=== PATIENT | male | born 1960 | race Caucasian/White ===

== ENCOUNTER 2017-03-01 06:01 | Inpatient (IN) ==
--- NOTE | 2017-03-01 06:07 | Emergency Department Note ---
Arrival - Arrival Stated Complaint: abscess Mode of Arrival: Stretcher Limitations: No Limitations Source: Patient, EMS Time Seen by Provider: 03/01/17 06:05 - History of Present Illness HPI Narrative: Patient is a 56-year-old white male sent from [facility] for evaluation of peritonsillar abscess. Patient's had a sore throat for 5 days. Patient has swelling on the left side of his throat. Onset (ago): day(s) (5) Consistency: constant Severity: moderate Allergies/Adverse Reactions: Allergies Allergy/AdvReac Type Severity Reaction Status Date / Time morphine AdvReac Mild Agitated Verified 03/01/17 06:40 Review of System - Review of System 12 point system: reviewed and no additional remarkable complaints except as stated Medical,Surgical,& Family Hx - Medical History Medical History: noncontributory - Social History Smoking Status: Current every day smoker Functional capacity: independent ambulation Exam Vital Signs: Vital Signs Temperature 98.4 F 03/01/17 07:29 Pulse Rate 85 03/01/17 07:29 Respiratory Rate 20 03/01/17 07:29 Blood Pressure 144/94 03/01/17 07:29 O2 Sat by Pulse Oximetry 93 L 03/01/17 07:29 GENERAL: This is a well-nourished well-developed white male in no apparent distress. VITAL SIGNS: Reviewed HEENT: Head is atraumatic and normocephalic. Pupils are equal round react to light. Extraocular movements are intact. Oropharynx is erythematous with mass in the left peritonsillar fossa and deviation of the uvula to the right. NECK: Neck is soft and supple without tenderness. There are no masses. There is no lymphadenopathy. LUNGS: Lungs are clear to auscultation. Chest rises symmetrically. There is no chest wall tenderness. CV: Heart is regular rate and rhythm without murmurs rubs or gallops. ABDOMEN: Abdomen is soft, nontender to palpation. There are no abdominal abnormal masses palpated. There is no organomegaly. Bowel sounds are present and active. SKIN: Skin is warm and dry. No rash. EXTREMITIES: Patient has full range of motion without tenderness. There is no pedal edema. NEUROLOGIC: Awake alert and oriented 4. Cranial nerves II through XII are grossly intact. Motor is 5 over 5 in all extremities bilaterally. Course - Consultations Consultation #1: Discussed with Dr. Orta. Patient will be admitted to his service. Initial orders written for him. He will assume care of the patient upon patient's arrival to the [facility]. Time: 06:08 Disposition Clinical Impression: Left peritonsillar abscess Case discussed with: patient Disposition: Still a Patient Condition: Stable Time of Disposition: 06:07
[2017-03-01] MEDS ORDERED: ONDANSETRON 4 MG/2 ML VIAL IV PRN (07:29)
[2017-03-01] MEDS ORDERED: ACETAMINOPHEN 325 MG TABLET PO PRN (07:29)
[2017-03-01] MEDS ORDERED: DEXAMETHASONE 10 MG/1 ML VIAL IV ONE (08:00)
[2017-03-01 08:30] LABS: Basophils % 0.3 % (0.0-0.8); Hematocrit 44.8 VOL% (42.0-52.0); Hemoglobin 15.3 GM/DL (14.0-18.0); Immature Granulocytes % 0.8 %; Lymphocytes # 0.6 10*3/uL (1.4-4.0); Lymphocytes % 5.1 % (21.2-54.2); Mean Corpuscular HGB Conc 34.2 GM/DL (32-36); Mean Corpuscular Hemoglobin 32 PG (27-34); Mean Corpuscular Volume 92.9 FL (87-102); Mean Platelet Volume 10.3 FL (9.6-12.0); Monocytes # 0.2 10*3/uL (0.11-0.8); Monocytes % 1.8 % (1.7-12.7); Neutrophils # 10.9 10*3/uL (1.4-7.4); Platelet Count 260 T/CUMM (130-400); Red Blood Count 4.82 MC/CUMM (3.8-5.5); Red Cell Distribution Width 13.5 % (9.3-17.3); White Blood Count 11.9 T/CUMM (4-12)
[2017-03-01 08:48] LABS: Band Neutrophils 5 % (0-10); Lymphocytes 6 % (20-55); Platelet Estimate Adequate; Segmented Neutrophils 89 % (50-85); Total Cells Counted 100
[2017-03-01 08:49] LABS: Hypochromasia 1+
[2017-03-01] MEDS ORDERED: PANTOPRAZOLE 40 MG TABLET PO SCH (09:00)
[2017-03-01 09:01] LABS: Albumin 2.9 G/DL (3.4-5.0); Calcium 8.8 MG/DL (8.5-10.1); Potassium 4.1 MMOL/L (3.5-5.1); Total Protein 7.4 G/DL (6.4-8.3)
[2017-03-01] MEDS ORDERED: cefTRIAXone 1,000 MG in SODIUM CHLORIDE 0.9% 100 ML IV SCH (10:00)
--- NOTE | 2017-03-01 10:49 | History & Physical Report ---
Assessment and Plan - Time spent with patient Time spent with patient: Less than 30 minutes (1) Peritonsillar abscess Status: Acute Assessment and plan: I recommend OR incision and drainage with debridement and possible biopsy of left peritonsillar abscess and surrounding area. Risks and benefits were discussed and patient desires to proceed with surgery that will be performed later today. Current Visit: Yes (2) Dysphasia Status: Acute Current Visit: Yes (3) Odynophagia Status: Acute Current Visit: Yes History of Present Illness Chief complaint: Left peritonsillar abscess History of present illness: Mr. Nick is a 56 year old male with a 1+ week history of a sore throat that is dull pain consistently with intermittent sharp pains he is noted increasing dysphagia and odynophagia. He notes minimal to no improvement with over-the- counter medication and his story is changed is rather not he has been on antibiotics for this or not. The ER evaluated and performed a CT and found to have a left peritonsillar abscess ENT was asked to admit and drained peritonsillar abscess. Home Medications Medication Instructions Recorded Confirmed Type No Known Home Medications [No 03/01/17 03/01/17 History Known Home Medications] Allergies Allergy/AdvReac Type Severity Reaction Status Date / Time morphine AdvReac Mild Agitated Verified 03/01/17 06:40 12 point system: reviewed and no additional remarkable complaints except as stated Medical,Surgical,& Family Hx - Medical History Cardio: History of: CAD, Hypertension, LA, Cardiovascular Problems Psychological: History of: Anxiety Disorders, Depression Gastrointestinal: History of: GI Problems (left groin hernia) Musculoskeletal: No history of: Amputation - Surgical History Cardiac Surgeries: Sugical HX of: Cardiac Catheterization, Cardiac Surgery Thoracic Surgeries: Patient denies;: Organ Transplant Neurologic Surgeries: Patient denies: Neurologic Surgery HEENT Surgeries: Patient denies: Tonsilectomy & Adenoidectomy Abdominal Surgeries: Surgical HX of: Hernia Repair (2 years old) Patient denies: Abdominal Surgery Reproductive Surgeries: Patient denies;: Genitourinary Surgery - Social History Smoking Status: Current every day smoker Frequency of Alcohol Use: None Type of Drug Use: None Exam - Constitutional Vitals: Period Temp Pulse Resp BP Sys/Jackson Pulse Ox Last 24 Hr 98.1 F-98.4 F 85-90 18-20 144-151/94-100 93-98 General appearance: normal weight, no acute distress - Head Head exam: Present: normal inspection, normocephalic - Eye Eye exam: Present: EOMI Pupils: Present: DANYA - ENT ENT exam: Present: other (Left soft palate and peritonsillar fullness with right midline shift of the uvula.) - Expanded ENT Exam TM exam: cerumen impaction: Bilateral TM Mouth exam: Present: dry mucosa Teeth exam: Present: dental caries, other (Very poor dental hygiene) Throat exam: Present: L peritonsillar mass, post pharyngeal edema, post pharyngeal erythema, tonsillar exudate - Neck Neck exam: Present: normal inspection - Respiratory Respiratory exam: Present: other (No shortness of breath or difficulty breathing ) - Cardiovascular Cardiovascular exam: Present: regular rate and rhythm - GI/Abdominal GI/Abdominal exam: Present: soft (No gross organomegaly) - Extremities Exam Extremities exam: Present: normal inspection, normal capillary refill - Neurological Exam Neurological exam: Present: alert, oriented X3, CN II-XII intact - Psychiatric Psychiatric exam: Present: normal affect, normal mood - Skin Skin exam: Present: normal color, warm Results - Labs CBC & BMP: 03/01/17 08:03 03/01/17 08:03
[2017-03-01] MEDS: LACTATED RINGERS 1,000 ML IV SCH ×2 (11:06→16:38)
[2017-03-01 12:30] LABS: Bilirubin,Total 2.4 MG/DL (0.2-1.0)
--- NOTE | 2017-03-01 12:42 | EKG Report ---
Stationary ECG Study [facility] Test Date: 03/01/2017 12:43:48 PM Pat Name: REE BRYAN Department: Room: 327 Gender: M Hr Systems Analyst: DANAY : 1960 Requested by: Fredis Mancilla Order Number: [id number] Reading MD: KIM PRETTY Intervals [place] Rate: 80 P: 81 LA: 146 QRS: -49 QRSD: 124 T: 88 QT: 414 QTc: 450 Interpretive Statements SINUS RHYTHM INFERIOR MYOCARDIAL INFARCTION, PROBABLY OLD WITH POSTERIOR EXTENSION ANTEROLATERAL MYOCARDIAL INFARCTION, OF INDETERMINATE AGE Electronically Signed On 03-03-17 15:24:42 CDT by KIM PRETTY [email or web address]
[2017-03-01] MEDS ORDERED: CLINDAMYCIN INJ 900 MG in PREMIX 1 EACH IV SCH (14:00)
[2017-03-01] MEDS ORDERED: ETOMIDATE 20 MG/10 ML VIAL IV ONE (14:23)
[2017-03-01] MEDS ORDERED: ONDANSETRON 4 MG/2 ML VIAL ONE (14:23)
[2017-03-01] MEDS ORDERED: LIDOCAINE 2% 5 ML VIAL ONE (14:23)
[2017-03-01] MEDS ORDERED: PROPOFOL 200 MG/20 ML VIAL IV ONE (14:23)
[2017-03-01] MEDS ORDERED: ROCURONIUM 100 MG/10 ML VIAL IV ONE (14:23)
[2017-03-01] MEDS ORDERED: SUCCINYLCHOLINE 200 MG/10 ML VIAL ONE (14:23)
[2017-03-01] MEDS ORDERED: DEXAMETHASONE 10 MG/1 ML VIAL ONE (14:23)
[2017-03-01] MEDS ORDERED: fentaNYL 100 MCG/2 ML VIAL ONE (15:01)
[2017-03-01] MEDS ORDERED: SEVOFLURANE 1 UNIT/15 MINUTE INH ONE (15:01)
[2017-03-01] MEDS ORDERED: MIDAZOLAM 2 MG/2 ML VIAL ONE (15:02)
--- NOTE | 2017-03-01 15:14 | Anesthesia Post-Op ---
Anesthesia Post OP - Post Ansesthetic Evaluation Patient seen in post op: Yes Resp: within normal limits CV: within normal limits Mental: within normal limits Temp: within normal limits [id number]: within normal limits Nausea and Vomiting: within normal limits Pain: within normal limits
--- NOTE | 2017-03-01 15:55 | Discharge Summary ---
Hospital Course - Hospital Course Hospital Course: The patient was evaluated in the emergency room this morning and found to have a left peritonsillar abscess when she was observed throughout the day and taken back to the OR for incision and drainage in which he tolerated this well he will be discharged home on antibiotics and follow-up with me in the clinic. - Time spent with patient Time with patient DS: Less than 30 minutes Diagnosis - Discharge Diagnosis (1) Peritonsillar abscess Status: Acute (2) Dysphasia Status: Acute (3) Odynophagia Status: Acute Specialty Discharge - Follow Up or Referrals Follow up with: Royer Orta DO [Physician] - 1 Week Discharge Plan - Discharge Data Disposition: Disch To Home/Self Care Condition at Discharge: Stable Discharge Diet: advance to your usual diet Activity: resume usual activities as tolerated Hygiene: no restrictions Weight Bearing at Discharge: full weight bearing Driving: no restrictions - Discharge Medications New Clindamycin Inj [Cleocin Inj] 900 mg IV Q8HR HYDROcodone/ACETAMIN 7.5-325 [Bastian 7.5-325] 1 tablet PO Q4H PRN tablet PRN Reason: Pain Moderate (4-7) - Follow Up or Referral - Forms/Instructions Exam - Constitutional Vitals: Period Temp Pulse Resp BP Sys/Jackson Pulse Ox Last 24 Hr 97.3 F-98.4 F 74-97 18-20 125-167/76-118 92-100 General appearance: normal weight, no acute distress - Head Head exam: Present: normal inspection, normocephalic - Eye Eye exam: Present: EOMI Pupils: Present: DANYA - ENT ENT exam: Present: normal exam, normal external ear exam, other (Left peritonsillar swelling and edema consistent with peritonsillar abscess that has been incised and drained in the OR) - Expanded ENT Exam TM exam: cerumen impaction: Bilateral TM Teeth exam: Present: dental caries (Throughout extremely poor teeth and mucosal and gingival erythema) Throat exam: Present: L peritonsillar mass (Incised and drained in the OR), post pharyngeal edema, post pharyngeal erythema - Neck Neck exam: Present: normal inspection - Respiratory Respiratory exam: Present: clear to auscultation bilaterally - Cardiovascular Cardiovascular exam: Present: regular rate and rhythm - GI/Abdominal GI/Abdominal exam: Present: normal bowel sounds, soft - Extremities Exam Extremities exam: Present: normal inspection - Neurological Exam Neurological exam: Present: alert, oriented X3, CN II-XII intact - Psychiatric Psychiatric exam: Present: normal affect, normal mood - Skin Skin exam: Present: normal color, warm Discharge Results Labs on day of discharge: Labs from last 24 hours 03/01/17 03/01/17 08:03 08:03 WBC 11.9 RBC 4.82 Hgb 15.3 Hct 44.8 MCV 92.9 MCH 32 MCHC 34.2 RDW 13.5 Plt Count 260 MPV 10.3 Neut % (Auto) 92.0 H Lymph % (Auto) 5.1 L Ulster % (Auto) 1.8 Eos % (Auto) 0.0 Baso % (Auto) 0.3 Neut # (Auto) 10.9 H Lymph # (Auto) 0.6 L Ulster # (Auto) 0.2 Eos # (Auto) 0.0 Baso # (Auto) 0.0 Total Counted 100 Immature Gran % 0.8 Nucleated RBC % 0.0 Immature Gran # 0.10 Segmented Neutrophils 89 H Band Neutrophils 5 Lymphocytes 6 L Nucleated RBCs # 0.00 Platelet Estimate Adequate Hypochromasia 1+ Morphology Comment Sodium 136 Potassium 4.1 Chloride 101 Carbon Dioxide 26 Anion Gap 13.1 BUN 19 H Creatinine 1.00 GFR Calculation 96 BUN/Creatinine Ratio 19.00 Glucose 222 H Calculated Osmolality 280.0 Calcium 8.8 Total Bilirubin 2.40 H AST 21 ALT 46 Alkaline Phosphatase 102 Total Protein 7.4 Albumin 2.9 L Globulin 4.5 H Albumin/Globulin Ratio 0.6 L DS: Provider Date of admission: 03/01/17 06:11 Primary care physician: . No PCP Attending physician on admission: Royer Orta DO Discharging clinician: Royer Orta DO Expected date of discharge: 03/01/17
[2017-03-01 17:24] VITALS: BP 128/83
== END 2017-03-01 17:05 | disposition home or self-care (01) | DRG 134 ==
LOC: EDBD → EDUNIT# → N.ED 06:01 → N.EDINP 06:11 → N.3E 06:43
PROVIDERS: ADMIT Otolaryngology; ATTEND Otolaryngology

== ENCOUNTER 2017-05-25 19:51 | Inpatient (IN) ==
[2017-05-25] MEDS ORDERED: MIDAZOLAM 2 MG/2 ML VIAL ONE (20:01)
[2017-05-25] MEDS ORDERED: HYDROmorphone 2 MG/1 ML VIAL ONE (20:01)
[2017-05-25] MEDS ORDERED: HEPARIN/NACL 0.9% 2 UNITS/ML 1,000 ML IV ONE (20:09)
[2017-05-25] MEDS ORDERED: LIDOCAINE 1% 20 ML VIAL ONE (20:09)
[2017-05-25] MEDS ORDERED: NITROGLYCERIN DRIP 50 MG/250 ML BOTTLE IV ONE (20:54)
[2017-05-25] MEDS ORDERED: LABETALOL 20 MG/4 ML SYRINGE IV ONE (21:02)
[2017-05-25] MEDS: NITROGLYCERIN DRIP 50 MG/250 ML BOTTLE IV SCH (22:00)
--- NOTE | 2017-05-25 22:05 | Cardiac Catheterization ---
Date of Procedure:: 05/25/17 Pre-op Diagnosis: Anterolateral infarction chest pain Post-op diagnosis: same Procedure: Cardia catheterization procedure note #1 left heart catheterization #2 selective coronary angiography #3 vein graft angiography #4 CARROLL angiography #5 ALESHIA angiography #6 left ventriculography #7 aortogram #8 successful OM 1 stent Omnipaque was used for procedure Description of procedure 3 [place] techs and a physician were waiting in the [place] [place] for the patient to arrive from [facility]. The patient was quickly prepped and draped in sterile fashion and local anesthesia was achieved by infiltration 1% Xylocaine. Using a Cook needle the right femoral artery was cannulated and a #6 sheath was inserted. A 6 Uruguayan left Glenis catheter was introduced in the left main was cannulated. Coronary angiography was performed in several MACKAY and SWEDISH projections. The catheter change for a 6 Uruguayan KADY catheter and CARROLL angiography was performed in MACKAY SWEDISH projections. The catheter change for a 6 Uruguayan left coronary bypass graft catheter and vein graft angiography was performed in MACKAY and SWEDISH projections. The catheter change for a 6 [place]ruguayan right Amplatz catheter and right coronary angiography was performed in the SWEDISH projection only. The catheter change for a pigtail catheter and an aortogram was then performed in the SWEDISH projection only using 36 cc of contrast. The catheter was advanced retrograde in the left ventricle and the end-diastolic pressure was recorded. Left ventriculography was performed in the MACKAY projection using 24 cc of contrast. A pullback was made across phytic valve. The catheter change for a 6 Uruguayan left Glenis guiding catheter left main was recannulated. A pro-water flex wire was introduced and advanced into the distal circumflex. Direct stenting was performed with a 3.0 x 20 Ott rebel bare-metal stent. It was postdilated to 15 isabel creating a 3.3 mm lumen. The balloon was then removed and exchanged for a 3.25 mm Quantum noncompliant balloon and the stent was postdilated to 18 isabel for 25 seconds, creating a 3.38 mm lumen. The balloon was then deflated and brought to the guiding catheter. Repeat angiography widely patent vessel with mild residual narrowing no dissection and brisk runoff. The guiding catheter was then removed and the KADY catheter was introduced over guidewire and ALESHIA angiography was performed in the shallow SWEDISH projection. The catheter and sheath were then removed and the femoral arteriotomy site was sealed percutaneously minx closure device with prompt cessation of bleeding and prompt return of femoral and foot pulses. The patient was transported to CCU in guarded condition. Hemodynamic data Aortic pressure 147/100 mean 120 Left ventricle 147/20 Selective coronary angiography Left main trunk is patent bifurcates. The LAD is totally occluded at the previous stent sites just at the first septal lost charge card clerk. The diagonal branch is occluded. There is a 80% narrowing in the proximal OM 1 branch. There is a 60% narrowing the main trunk of the circumflex. The dominant coronary artery is occluded in the proximal segment with bridging collaterals. Several septal perforators provide good cocw-uj-echca collaterals to distal right coronary branches. The saphenous vein graft to the diagonal is widely patent. The left internal mammary arteries a 2.5 motor non-tortuous patent vessel. There is no anastomosis to the LAD. The right internal mammary artery is a 3 mm non- tortuous patent vessel. Left ventriculography The end-systolic and end-diastolic volumes are increased. There is anteroapical akinesis and inferobasal akinesis. Ejection fraction 20% . There is mild 1+ mitral regurgitation under the conditions of the study. Aortogram The proximal aortic root is mildly dilated. No aortic insufficiency. No other grafts visualized. Conclusions #1 increased LVEDP 20 #2 ejection fraction 20% with inferobasal akinesis and anteroapical akinesis #3 mild 1+ mitral regurgitation #4 no aortic valve gradient #5 aortogram no AI, only one graft visualized #6 left main trunk-patent #7 LAD-occluded proximally at the previous stent sites just after the first septal lost charge card clerk #8 diagonal-occluded #9 circumflex-80% ostial OM1 and 6% main trunk circumflex stenosis #10 dominant RCA-100% proximal occlusion with bridging collaterals and good left -to-right collaterals from several septal perforators fill the distal right branches in a retrograde manner #11 CARROLL-patent 2.5 mm vessel. No anastomosis to LAD #12 ALESHIA-3.0 mm vessel #13 successful OM1 stent using a 3.0 x 20 moderate rebel bare-metal stent, postdilated with a 3.25 Quantum noncompliant balloon to 3.38 mm lumen. Good result obtained. Disposition This patient has a long complicated cardiac history. He is status post anterior infarct with LAD stent September 2009 at [facility] with apical akinesis. He is status post LAD re-stent December 2009 in [place] He had his third LAD stent procedure in April 2010 in [place]. This was due to noncompliance with Plavix. He is status post two-vessel CABG September 27, 2010 with a CARROLL graft to the LAD and vein graft to diagonal by Dr. Tate. The patient has not been seen since 2010. He has been off work for the past 3 years and has taken no medications. Today he presented with recurrent chest pain and was sent in a delayed manner from [facility] to the [place] [facility]. My entire team was waiting when he arrived. The EKG showed deep Q waves in the inferior and lateral leads. Since I last saw him in 2010 he has had a inferior infarction and occlusion of the right coronary with good nypd-ju-mleqs collaterals. The LAD stent sites are occluded as expected and are chronic. The new finding was severe disease in the OM1 branch which was stented with a 3.0 x 20 mm Rebel bare-metal stent, postdilated to a 3.38 mm lumen. The vein graft to diagonal is widely patent. The left internal mammary artery does not anastomose to the LAD. 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 Ejection fraction 20%. He will be managed medically. Implants: Successful OM1 stent 3.0 x 20 minute rebel bare-metal stent postdilated 3.3 mm lumen with a noncompliant balloon. Good result obtained. Anesthesia: moderate conscious sedation Surgeon / Physician: Shamir Mckinnon Estimated blood loss: minimal Condition: stable Disposition: ICU/CCU - Medications / Follow-up
[2017-05-25] MEDS ORDERED: ZALEPLON 5 MG CAPSULE PO PRN (22:06)
[2017-05-25] MEDS ORDERED: ONDANSETRON 4 MG/2 ML VIAL IV PRN (22:06)
[2017-05-25] MEDS ORDERED: ACETAMINOPHEN 325 MG TABLET PO PRN (22:06)
--- NOTE | 2017-05-25 22:21 | Cardiology History & Physical ---
History of Present Illness History of present illness: Cardiology history and physical 56-year-old man transferred directly, she will be ER with chest pain and anterolateral infarction. EKG showed deep inferior and lateral Q waves and anterolateral wall ST elevation consistent with acute infarction. 3 cath techs and myself were waiting the General Education Instructor for the patient to arrive. He has a long complicated cardiac history. He is status post anterior infarction with proximal LAD stent September 2009 at [facility]. He had apical akinesis at that time. He is status post LAD re-stent December 2009 in [place]. He is status post third LAD stent April 2010 in [place] for noncompliance with Plavix. At that time the circumflex and right coronary had only mild diffuse disease. He is status post two-vessel CABG September 27, 2010 with CARROLL graft to LAD and vein graft to diagonal by Dr. Tate. The patient signed out AGAINST MEDICAL ADVICE. I have not seen the patient since 2010. He has not worked in 3 years and has taken no medication during that time. He was seen in the [facility] emergency room with peritonsillar abscess February 2017 and was treated. He began the paperwork to apply for disability at that time. Longtime tobacco abuser. Still smoking at least one half pack per day. No alcohol. He does have a history of hyperlipidemia and hypertension that are untreated. poor oral hygiene. He has been and twice. He has no children. His brother lives in [place] and another brother lives in [place]. He takes no medications. He has no allergies but morphine does make him agitated and hyper. Blood pressure 150/100 pulse 92 and regular respirations 22 his skin is warm and moist and he is complaining of pain. Poor oral hygiene. Semi-edentulous. Strong nicotine breath. Left carotid bruit. Decreased breath sounds. Regular rhythm distant heart tones. Abdomen soft benign. Femoral pulses 2+ with faint bilateral bruits. No leg edema. Distal pulses 2+ Impression Anterolateral wall infarction Status post anterior infarction with LAD stent September 2009 [facility] with apical akinesis Status post LAD re-stent December 2009 in [place] Status post third LAD stent April 2010 in [place]. This was due to noncompliance with Plavix. Status post two-vessel CABG September 27, 2010 with CARROLL graft to LAD and vein graft to diagonal by Dr. Tate Noncompliance with medication and followup. I have not seen this patient since September 2010. Active smoker Poor oral hygiene PVD Status post peritonsillar abscess drainage February 2017 EKG shows evidence for old inferolateral infarction which was not present in 2010. Plan Emergent heart cath possible stent Lab data pending Aspirin Lovenox Brilinta No family present This patient require aggressive lifestyle changes and risk factor modification Home Medications Medication Instructions Recorded Confirmed Type Clindamycin Inj [Cleocin Inj] 900 mg IV Q8HR 03/01/17 Rx HYDROcodone/ACETAMIN 7.5-325 1 tablet PO Q4H PRN tablet 03/01/17 Rx [Golf 7.5-325] Allergies Allergy/AdvReac Type Severity Reaction Status Date / Time morphine AdvReac Mild Agitated Verified 03/01/17 06:40 Medical,Surgical,& Family Hx - Medical History Cardio: History of: CAD, Hypertension, SD, Cardiovascular Problems Psychological: History of: Anxiety Disorders, Depression Gastrointestinal: History of: GI Problems (left groin hernia) Musculoskeletal: No history of: Amputation - Surgical History Cardiac Surgeries: Sugical HX of: Cardiac Catheterization, Cardiac Surgery Thoracic Surgeries: Patient denies;: Organ Transplant Neurologic Surgeries: Patient denies: Neurologic Surgery HEENT Surgeries: Patient denies: Tonsilectomy & Adenoidectomy Abdominal Surgeries: Surgical HX of: Hernia Repair (1 years old) Patient denies: Abdominal Surgery Reproductive Surgeries: Patient denies;: Genitourinary Surgery - Social History Smoking Status: Current every day smoker Frequency of Alcohol Use: None Type of Drug Use: Marijuana Cardiology Physical Exam - Constitutional Vitals: Vital Signs Temp Pulse Resp BP Pulse Ox 97.6 F 68 12 122/96 97 05/25/17 21:52 05/25/17 21:52 05/25/17 21:52 05/25/17 21:52 05/25/17 21:52 Intake and Output 05/25/17 05/25/17 05/25/17 07:59 15:59 23:59 Other: Weight 85.774 kg Patient Weight 05/25/17 23:59 Weight 85.774 kg
[2017-05-25] MEDS ORDERED: SODIUM CHLORIDE 0.9% 1,000 ML IV SCH (22:30)
[2017-05-25] MEDS ORDERED: CLORAZEPATE 7.5 MG TABLET PO PRN (22:34)
[2017-05-25] MEDS ORDERED: MAGNESIUM HYDROXIDE SUSP 30 ML UDCUP PO PRN (22:35)
[2017-05-25 23:56] LABS: CKMB % 11.8 %
[2017-05-25 23:58] LABS: Troponin I Only 6.92 NG/ML (0.00-0.045)
[2017-05-26 05:11] LABS: Basophils % 0.4 % (0.0-0.8); Eosinophils % 0.1 % (0.00-10.9); Hematocrit 44.3 VOL% (42.0-52.0); Hemoglobin 15.1 GM/DL (14.0-18.0); Immature Granulocytes % 0.6 %; Immature Granulocytes Absolute 0.06 #; Lymphocytes # 1.5 10*3/uL (1.4-4.0); Mean Corpuscular HGB Conc 34.1 GM/DL (32-36); Mean Corpuscular Hemoglobin 32 PG (27-34); Mean Corpuscular Volume 93.5 FL (87-102); Mean Platelet Volume 10.2 FL (9.6-12.0); Monocytes # 0.4 10*3/uL (0.11-0.8); Monocytes % 4.2 % (1.7-12.7); Neutrophils # 8.4 10*3/uL (1.4-7.4); Neutrophils % 80.7 % (38.7-73.9); Platelet Count 317 T/CUMM (130-400); Red Blood Count 4.74 MC/CUMM (3.8-5.5); Red Cell Distribution Width 13.3 % (9.3-17.3); White Blood Count 10.4 T/CUMM (4-12)
[2017-05-26 05:46] LABS: Calcium 8.8 MG/DL (8.5-10.1); Osmolality,Calculated 276.7 MOS/KG (273-304); Potassium 4.2 MMOL/L (3.5-5.1); Risk Ratio 6.48; VLDL CHOLESTEROL 33.4 MG/DL
--- NOTE | 2017-05-26 07:55 | EKG Report ---
Stationary ECG Study [facility] Test Date: 05/26/2017 7:55:50 AM Pat Name: REE BRYAN Department: Room: 121 Gender: M Optometric Aide: : 1960 Requested by: Shamir Mckinnon Order Number: [id number] Reading MD: MARK HOFFMAN Intervals [place] Rate: 89 P: 55 VA: 88 QRS: -79 QRSD: 122 T: 221 QT: 412 QTc: 459 Interpretive Statements SINUS RHYTHM WITH SHORT VA INTERVAL WITH OCCASIONAL VENTRICULAR PREMATURE COMPLEXES INDETERMINATE AXIS INFERIOR MYOCARDIAL INFARCTION, OF INDETERMINATE AGE WITH POSTERIOR EXTENSION ANTEROLATERAL MYOCARDIAL INFARCTION, PROBABLY RECENT Electronically Signed On 05-26-17 16:04:48 CDT by MARK HOFFMAN [email or web address]
[2017-05-26 08:06] LABS: CKMB % 13.9 %
[2017-05-26 08:09] LABS: Troponin I Only 48.8 NG/ML (0.00-0.045)
[2017-05-26] MEDS: ASPIRIN EC 81 MG TABLET PO SCH (08:30)
[2017-05-26] MEDS: DOCUSATE SODIUM 100 MG CAPSULE PO SCH ×2 (08:30→21:40)
[2017-05-26] MEDS: TICAGRELOR 90 MG TABLET PO SCH ×2 (08:30→21:41)
[2017-05-26] MEDS: PANTOPRAZOLE 40 MG TABLET PO SCH (08:30)
--- NOTE | 2017-05-26 08:32 | Cardiology Progress Note ---
Cardiology - PN: Subj Interval history: Cardiology note Day 1 status post anterolateral wall infarction with OM1 stent No pain. Good appetite. Telemetry shows sinus rhythm in the 90s O2 sat 95 on 2 L cannula Blood pressure 136/90 on 30 mics IV nitro Regular rhythm with systolic murmur lower sternal border Abdomen soft benign Right groin has small ecchymotic bruise but no hematoma. Distal pulses 2+ Lab data today white count 10.4 hemoglobin 15.1 hematocrit 44.3 Sodium 138 potassium 3.2 chloride 101 CO2 22 BUN 17 creatinine 0.80 CPK 1972 troponin 48 Impression Anterolateral wall infarction with delayed presentation Status post OM1 stent Status post anterior infarction with LAD stent September 2009 [facility] with apical akinesis Status post LAD stent December 2009 in [place] Status post third LAD stent April 2010 injection. This was due to noncompliance with Plavix. Status post two-vessel CABG September 27, 2010 with CARROLL graft to LAD and vein graft to diagonal by Dr. Tate Noncompliance with medication and follow-up. I have not seen the patient since September 2010 Active smoker Poor oral hygiene PVD Status post peritonsillar abscess drainage February 2017 Ejection fraction 20% with inferoapical and anteroapical akinesis and mild MR Plan Begin Coreg 3.125 mg twice daily Begin lisinopril 2.5 mg twice daily Echo Doppler today Replace potassium Aspirin 81 mg daily and Brilinta 90 mg twice daily Chest x-ray and BNP Lasix 40 mg IV daily BMP in a.m. 40 mg Lovenox subcu daily Exam (Progress Note) - Constitutional Vitals: Period Temp Pulse Resp BP Sys/Jackson Pulse Ox Last 24 Hr 97.6 F-98.3 F 68-91 7-24 112-139/79-96 95-98 Result/EKG - Labs CBC & BMP: 05/26/17 04:43 05/26/17 04:43 Labs: Laboratory Results - last 24 hr 05/25/17 05/26/17 05/26/17 23:02 04:43 04:43 WBC 10.4 RBC 4.74 Hgb 15.1 Hct 44.3 MCV 93.5 MCH 32 MCHC 34.1 RDW 13.3 Plt Count 317 MPV 10.2 Neut % (Auto) 80.7 H Lymph % (Auto) 14.0 L [place] % (Auto) 4.2 Eos % (Auto) 0.1 Baso % (Auto) 0.4 Neut # (Auto) 8.4 H Lymph # (Auto) 1.5 [place] # (Auto) 0.4 Eos # (Auto) 0.0 Baso # (Auto) 0.0 Immature Gran % 0.6 Nucleated RBC % 0.0 Immature Gran # 0.06 Nucleated RBCs # 0.00 Immature Plt Fraction 0.0 Sodium 138 Potassium 4.2 Chloride 107 Carbon Dioxide 22 Anion Gap 13.2 BUN 17 Creatinine 0.80 GFR Calculation 121 BUN/Creatinine Ratio 21.00 H Glucose 107 H Calculated Osmolality 276.7 Calcium 8.8 Total Creatine Kinase 762 H CK-MB (CK-2) 90.1 H CK and CKMB Interp 11.8 Troponin I 6.920 H Triglycerides 167 H Cholesterol 201 H LDL Cholesterol 130.0 VLDL Cholesterol 33.4 HDL Cholesterol 31 L Heart Disease Risk Ratio 6.48 05/26/17 06:50 WBC RBC Hgb Hct MCV MCH MCHC RDW Plt Count MPV Neut % (Auto) Lymph % (Auto) Rose[place] % (Auto) Eos % (Auto) Baso % (Auto) Neut # (Auto) Lymph # (Auto) [place] # (Auto) Eos # (Auto) Baso # (Auto) Immature Gran % Nucleated RBC % Immature Gran # Nucleated RBCs # Immature Plt Fraction Sodium Potassium Chloride Carbon Dioxide Anion Gap BUN Creatinine GFR Calculation BUN/Creatinine Ratio Glucose Calculated Osmolality Calcium Total Creatine Kinase 1972 H D CK-MB (CK-2) 273.9 H D CK and CKMB Interp 13.9 Troponin I 48.800 H D Triglycerides Cholesterol LDL Cholesterol VLDL Cholesterol HDL Cholesterol Heart Disease Risk Ratio
[2017-05-26] MEDS ORDERED: POTASSIUM CHLORIDE 20 MEQ TABLET PO SCH (09:00)
[2017-05-26] MEDS: LISINOPRIL 2.5 MG TABLET PO SCH ×2 (09:17→21:39)
[2017-05-26] MEDS: CARVEDILOL 3.125 MG TABLET PO SCH ×2 (09:17→16:19)
[2017-05-26] MEDS: ENOXAPARIN 40 MG/0.4 ML SYRINGE SUBCUT SCH (09:17)
--- NOTE | 2017-05-26 12:19 | ECHO Report ---
Madhav Nick Exam Date: 05/26/2017 08:44 Referring Physician: Technologist: Nenita Lyman Age: 56 Ht (in): 74 Wt (lb): 189 Gender: M Exam Location: [facility] Echo Indications: STEMI BP: 134 / 88 HR: 90 Rhythm: Sinus Technical Quality: Technically difficult study IMPRESSIONS EF 20-25 %. Anteroapical and inferobasal akinesis. Old apical thrombus. Grade I/IV diastolic dysfunction (abnormal relaxation filling pattern), normal to mildly elevated filling pressures. Normal right ventricular size and systolic function. The right atrium is mildly enlarged. The left atrium is mildly enlarged. Mildly thickened mitral valve. Mild mitral valve regurgitation. Aortic valve sclerosis. Trace aortic valve regurgitation. Moderate tricuspid valve regurgitation. Pulmonic valve not well visualized. No pericardial effusion. Normal aorta. MEASUREMENTS (Male / Female) Normal Values 2D ECHO LV Diastolic Diameter PLAX 4.5 cm 4.2 - 5.9 / 3.9 - 5.3 cm LV Systolic Diameter PLAX 3.1 cm LV Fractional Shortening PLAX 31.2 % IVS Diastolic Thickness 1.6 cm 0.6 - 1.0 / 0.6 - 0.9 cm LVPW Diastolic Thickness 1.4 cm 0.6 - 1.0 / 0.6 - 0.9 cm Aortic Root Diameter 2.6 cm LA Systolic Diameter LX 3.8 cm 3.0 - 4.0 / 2.7 - 3.8 cm FINDINGS Left Ventricle EF 20-25 %.Anteroapical and inferobasal akinesis. Old apical trombus. Grade I/IV diastolic dysfunction (abnormal relaxation filling pattern), normal to mildly elevated filling pressures. Right Ventricle Normal right ventricular size and systolic function. Right Atrium The right atrium is mildly enlarged. Left Atrium The left atrium is mildly enlarged. Mitral Valve Mildly thickened mitral valve. Mild mitral valve regurgitation. Aortic Valve Aortic valve sclerosis. Trace aortic valve regurgitation. Tricuspid Valve Morphologically normal tricuspid valve. Moderate tricuspid valve regurgitation. PAP45 mmHg. Pulmonic Valve Pulmonic valve not well visualized. Pericardium No pericardial effusion. Aorta Normal aorta. Piyush Pratibha (Electronically Signed) Final Date: 26 May 2017 12:18
[2017-05-26 14:49] LABS: CKMB % 12.7 %
[2017-05-26 14:53] LABS: Troponin I Only 77.5 NG/ML (0.00-0.045)
--- NOTE | 2017-05-26 16:26 | XRay Report ---
Portable chest May 26, 2017 Indication: Difficulty breathing Comparison images performed on June 22, 2014 Findings: Heart size is normal. Sternotomy wires and midline. Persistent elevation right hemidiaphragm. Lungs are clear bilaterally. Impression: Elevation right hemidiaphragm. No acute cardiopulmonary process PROCEDURE INTERPRETED AT [facility] DEPARTMENT OF RADIOLOGY Final Report Signed by: Lacho Rinaldi
[2017-05-26] MEDS: ASCORBIC ACID 500 MG TABLET PO SCH (21:39)
[2017-05-26] MEDS: MAGNESIUM CHLORIDE 64 MG TABLET PO SCH (21:40)
[2017-05-26] MEDS: ROSUVASTATIN 20 MG TABLET PO SCH (21:41)
[2017-05-26] MEDS: NITROGLYCERIN DRIP 50 MG/250 ML BOTTLE IV SCH (23:02)
[2017-05-27 06:07] LABS: Calcium 8.3 MG/DL (8.5-10.1); Calcium 8.4 MG/DL (8.5-10.1); Magnesium 2.3 MG/DL (1.8-2.4); Osmolality,Calculated 275.7 MOS/KG (273-304); Osmolality,Calculated 277.5 MOS/KG (273-304); Potassium 3.8 MMOL/L (3.5-5.1)
--- NOTE | 2017-05-27 08:04 | Cardiology Progress Note ---
Cardiology - PN: Subj Interval history: Cardiology note Day 2 status post anterolateral wall infarct with OM stent No pain Telemetry shows sinus rhythm in the 80s O2 sat 96% on 2 L Blood pressure 90/62 Regular rhythm soft systolic murmur lower sternal border Decreased breath sounds but fairly clear Abdomen benign Right groin looks good. Small ecchymotic bruise. Good distal pulses Lab data today Sodium 138 potassium 3.8 chloride 108 CO2 24 BUN 14 creatinine 0.90 glucose 97 magnesium 2.3 Peak CPK 2146 peak troponin 77 Impression Day 2 status post and lateral wall infarction with delayed presentation Status post OM1 stent Status post anterior infarction with LAD stent September 2009 [facility] with apical akinesis Status post LAD stent December 2009 [place] Status post third LAD stent April 2010 [place]. This was due to noncompliance with Plavix. Status post two-vessel CABG September 27, 2010 with CARROLL graft to LAD and vein graft to the diagonal by Dr. Tate Noncompliance with medication and with follow-up. I have not seen the patient since September 2010 Active smoker Poor oral hygiene PVD status post peritonsillar abscess February 2017 Ejection fraction 20% with inferoapical and anteroapical akinesis and mild MR Echo showed ejection fraction of 20-25% with old apical thrombus mild MR, aortic valve sclerosis, normal RV function, moderate TR, PA pressure 45 and no effusion Plan Transfer to telemetry 40 mg Lovenox daily Lasix 40 mg IV daily Aspirin 81 mg and Brilinta 90 mg twice daily Coreg 3.125 g twice daily Hold lisinopril today Exam (Progress Note) - Constitutional Vitals: Period Temp Pulse Resp BP Sys/Jackson Pulse Ox Last 24 Hr 97.9 F-98.5 F 80-99 8-27 75-140/45-92 93-99 Result/EKG - Labs CBC & BMP: 05/26/17 04:43 05/27/17 05:27 Labs: Laboratory Results - last 24 hr 05/26/17 05/26/17 05/26/17 04:37 06:50 14:01 Sodium Potassium Chloride Carbon Dioxide Anion Gap BUN Creatinine GFR Calculation BUN/Creatinine Ratio Glucose Calculated Osmolality Calcium Magnesium Total Creatine Kinase 1972 H D 2146 H CK-MB (CK-2) 273.9 H D 271.6 H CK and CKMB Interp 13.9 12.7 Troponin I 48.800 H D 77.500 H D B-Natriuretic Peptide 253 H 05/27/17 05/27/17 05:27 05:27 Sodium 139 138 Potassium 3.8 3.8 Chloride 108 H 108 H Carbon Dioxide 24 24 Anion Gap 10.8 9.8 BUN 15 14 Creatinine 0.90 0.90 GFR Calculation 115 115 BUN/Creatinine Ratio 16.00 15.00 Glucose 95 97 Calculated Osmolality 277.5 275.7 Calcium 8.3 L 8.4 L Magnesium 2.3 Total Creatine Kinase CK-MB (CK-2) CK and CKMB Interp Troponin I B-Natriuretic Peptide
[2017-05-27] MEDS: CARVEDILOL 3.125 MG TABLET PO SCH ×2 (08:41→17:19)
[2017-05-27] MEDS: PANTOPRAZOLE 40 MG TABLET PO SCH (08:41)
[2017-05-27] MEDS: LISINOPRIL 2.5 MG TABLET PO SCH (08:41)
[2017-05-27] MEDS: ASCORBIC ACID 500 MG TABLET PO SCH ×2 (08:42→20:30)
[2017-05-27] MEDS: ASPIRIN EC 81 MG TABLET PO SCH (08:43)
[2017-05-27] MEDS: MAGNESIUM CHLORIDE 64 MG TABLET PO SCH ×2 (08:43→20:30)
[2017-05-27] MEDS: DOCUSATE SODIUM 100 MG CAPSULE PO SCH ×2 (08:43→20:30)
[2017-05-27] MEDS: TICAGRELOR 90 MG TABLET PO SCH ×2 (08:45→20:30)
[2017-05-27] MEDS: ENOXAPARIN 40 MG/0.4 ML SYRINGE SUBCUT SCH (08:45)
--- NOTE | 2017-05-27 09:42 | EKG Report ---
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
[2017-05-27] MEDS: ROSUVASTATIN 20 MG TABLET PO SCH (20:30)
[2017-05-28] MEDS: TICAGRELOR 90 MG TABLET PO SCH (09:18)
[2017-05-28] MEDS: ASPIRIN EC 81 MG TABLET PO SCH (09:18)
[2017-05-28] MEDS: DOCUSATE SODIUM 100 MG CAPSULE PO SCH (09:18)
[2017-05-28] MEDS: CARVEDILOL 3.125 MG TABLET PO SCH (09:18)
[2017-05-28] MEDS: ASCORBIC ACID 500 MG TABLET PO SCH (09:18)
[2017-05-28] MEDS: MAGNESIUM CHLORIDE 64 MG TABLET PO SCH (09:18)
[2017-05-28] MEDS: PANTOPRAZOLE 40 MG TABLET PO SCH (09:18)
[2017-05-28 09:37] LABS: Basophils # 0.1 10*3/uL (0.0-0.2); Basophils % 0.7 % (0.0-0.8); Eosinophils # 0.2 10*3/uL (0.0-0.87); Hematocrit 44.1 VOL% (42.0-52.0); Hemoglobin 14.8 GM/DL (14.0-18.0); Immature Granulocytes % 0.8 %; Immature Granulocytes Absolute 0.07 #; Lymphocytes # 1.7 10*3/uL (1.4-4.0); Lymphocytes % 20.5 % (21.2-54.2); Mean Corpuscular HGB Conc 33.6 GM/DL (32-36); Mean Corpuscular Hemoglobin 32 PG (27-34); Mean Platelet Volume 10.1 FL (9.6-12.0); Monocytes # 0.6 10*3/uL (0.11-0.8); Monocytes % 7.1 % (1.7-12.7); Neutrophils # 5.8 10*3/uL (1.4-7.4); Neutrophils % 68.9 % (38.7-73.9); Platelet Count 265 T/CUMM (130-400); Red Blood Count 4.64 MC/CUMM (3.8-5.5); Red Cell Distribution Width 13.5 % (9.3-17.3); White Blood Count 8.5 T/CUMM (4-12)
[2017-05-28 10:15] LABS: Calcium 8.7 MG/DL (8.5-10.1); Magnesium 2.2 MG/DL (1.8-2.4); Osmolality,Calculated 281.4 MOS/KG (273-304)
[2017-05-28] MEDS: ENOXAPARIN 40 MG/0.4 ML SYRINGE SUBCUT SCH (10:41)
--- NOTE | 2017-05-28 10:57 | Discharge Summary ---
Hospital Course - Hospital Course Hospital Course: RN FAMILY: DR. MCKINNON PCP: RONNIE NOVA, AT [place], [place] I have personally interviewed and evaluated the patient, reviewed the chart and discussed medical decision-making with Practitioner Nguyễn. I have read this note and agree with her documentation here in. SUMMARY: Mr. Nick, 56WM, presented to [facility] May 25, 2017, diagnosed with STEMI and was taken emergently to the cardiac catheterization lab where Dr. Mckinnon performed heart cath with the following impression noted: Conclusions #1 increased LVEDP 20 #2 ejection fraction 20% with inferobasal akinesis and anteroapical akinesis #3 mild 1+ mitral regurgitation #4 no aortic valve gradient #5 aortogram no AI, only one graft visualized #6 left main trunk-patent #7 LAD-occluded proximally at the previous stent sites just after the first septal supervisor curing room #8 diagonal-occluded #9 circumflex-80% ostial OM1 and 6% main trunk circumflex stenosis #10 dominant RCA-100% proximal occlusion with bridging collaterals and good left -to-right collaterals from several septal perforators fill the distal right branches in a retrograde manner #11 CARROLL-patent 2.5 mm vessel. No anastomosis to LAD #12 ALESHIA-3.0 mm vessel #13 successful OM1 stent using a 3.0 x 20 moderate rebel bare-metal stent, postdilated with a 3.25 Quantum noncompliant balloon to 3.38 mm lumen. Good result obtained. He tolerated the procedure well without complication and was returned to our unit in stable condition. Echocardiogram revealed: EF 20-25%, anteroapical and inferior basal akinesis, old apical thrombus, grade 1 diastolic dysfunction, PAP 45 mmHg. Patient was started on appropriate medication regimen. His troponin trended down. He has been ambulating in his room without complaints of chest pain, heaviness, tightness. Patient has a history of noncompliance and in fact, went home AGAINST MEDICAL ADVICE, after his 2010 CABG. for this reason, a bare- metal stent was used. He is not being anticoagulated for chronic apical thrombus due to his history of noncompliance. Greater than 30 minutes was spent today discussing numerous recommendations including follow-up with Dr. Mckinnon and/or his primary care provider. Patient does not have insurance and has limited income. He tells me he has filed for disability and has another hearing soon and is hoping to obtain insurance coverage soon. Nonetheless, I have instructed him the importance of taking his Brilinta daily without fail for 30 days. He is being given a Brilinta prescription card for which she should be able to receive a 30 day prescription free of charge. 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 Also, patient does not follow up with her primary care provider but when he has followed up he has seen RONNIE Nova [place], [place]. Greater than 5 minutes was spent today discussing the merits of tobacco cessation. I have encouraged him to follow-up with him he may be a resource in getting his disability underway. He has been seen counseled by cardiac rehab. Cardiac discharge medications include the following: Aspirin 81 mg orally daily Coreg 3.125 mg orally twice daily Brilinta 90 mg orally twice daily without fail Atorvastatin 20 mg orally each evening Patient's blood pressure will not allow for introduction of an CHRISTEN inhibitor. - Time spent with patient Time with patient DS: Greater than 30 minutes Time spent discussing smoking cessation with patient: 3 to 10 minutes Diagnosis - Discharge Diagnosis (1) Hypertension Status: Chronic (2) Dyslipidemia Status: Chronic (3) Ischemic cardiomyopathy Status: Chronic (4) CAD (coronary artery disease) Status: Chronic (5) S/P CABG (coronary artery bypass graft) Status: Chronic (6) STEMI (ST elevation myocardial infarction) Status: Acute (7) Noncompliance Status: Acute (8) Tobacco use Status: Chronic Specialty Discharge - Follow Up or Referrals Follow up with: Shamir Mckinnon MD [Physician] - 06/11/17 12:50 pm (2 weeks) Discharge Plan - Discharge Data Disposition: Disch To Home/Self Care Condition at Discharge: Stable Discharge Diet: heart healthy Activity: other (Post cath expectations) Hygiene: other (Post cath expectations) Weight Bearing at Discharge: other (Post cath expected) Driving: other Contact your physician if you experience:: fever over 101, Difficulty voiding, Redness or swelling, Nausea/Vomiting, Shortness of breath, Bleeding, pain uncontrolled by pain medications - Discharge Medications New Carvedilol [Coreg] 3.125 mg PO BID W/MEALS #60 tablet Ticagrelor [Brilinta] 90 mg PO BID #60 tablet Aspirin EC Tab 81 mg PO DAILY #30 tablet Atorvastatin [Lipitor] 20 mg PO BEDTIME #30 tablet Continue HYDROcodone/ACETAMIN 7.5-325 [[place] 7.5-325] 1 tablet PO Q4H PRN tablet PRN Reason: Pain Moderate (4-7) Discontinued Clindamycin Inj [Cleocin Inj] 900 mg IV Q8HR - Follow Up or Referral Follow Up: Shamir Mckinnon MD [Physician] - 06/11/17 12:50 pm (2 weeks) - Forms/Instructions Instructions: Myocardial Infarction (GEN), Left Heart Catheterization (DC), How to Stop Smoking (DC), Heart Healthy Diet (GEN), Coronary Intravascular Stent Placement (DC), How to Stop Smoking, Special Programs Director (GEN) Additional Discharge Instructions: Please give today Brilinta prescription card at discharge and remind patient he must pharmacy picking tech this prescription today. Patient may be discharged after Dr. Alejandra has seen patient this morning. Please have patient follow-up with his primary care provider RONNIE He in 2 weeks Exam - Constitutional Vitals: Period Temp Pulse Resp BP Sys/Jackson Pulse Ox Last 24 Hr 97.3 F-98.0 F 73-81 16-20 94-110/60-75 94-99 Exam: General: [Appears well with no apparent distress.] [Pleasant and cooperative. ] [Appears comfortable.] HEENT: [PERRL, normocephalic, atraumatic. Mucous membranes moist. No jaundice noted. Conjunctiva moist and clear, sclerae anicteric] Neck: No JVD/HJR, no thyromegaly or lymphadenopathy noted. Poor dentition. No carotid bruit appreciated Cardiac: [Regular rate and rhythm.] [No obvious murmur, rub or gallop.] Lungs: [Clear to auscultation without accessory muscle use to assist the respiratory pattern.] Not requiring oxygen Abdomen: Soft, bowel sounds normoactive. Nontender and nondistended. No abdominal bruit or thrill noted. No masses noted. Musculoskeletal: No fluid collection. Decreased range of motion is noted. Extremities: Right groin soft, free of hematoma or bruit. Mild ecchymosis noted. No clubbing, cyanosis noted. [ No edema noted.] Upper extremity pulses 2+. Lower extremity pulses 1+. Capillary refill less than 3 seconds. Skin: No unusual lesions or rashes. No skin breakdown appreciated. Neuro: Awake, alert and oriented 3. Moves all extremities well without hemiparesis or paralysis. No essential tremor is appreciated. Discharge Results Labs on day of discharge: Labs from last 24 hours 05/28/17 05/28/17 05/28/17 09:17 09:17 09:17 WBC 8.5 RBC 4.64 Hgb 14.8 Hct 44.1 MCV 95.0 MCH 32 MCHC 33.6 RDW 13.5 Plt Count 265 MPV 10.1 Neut % (Auto) 68.9 Lymph % (Auto) 20.5 L [place] % (Auto) 7.1 Eos % (Auto) 2.0 Baso % (Auto) 0.7 Neut # (Auto) 5.8 Lymph # (Auto) 1.7 [place] # (Auto) 0.6 Eos # (Auto) 0.2 Baso # (Auto) 0.1 Immature Gran % 0.8 Nucleated RBC % 0.0 Immature Gran # 0.07 Nucleated RBCs # 0.00 Immature Plt Fraction 0.0 Sodium 140 Potassium 4.0 Chloride 107 Carbon Dioxide 26 Anion Gap 11.0 BUN 21 H Creatinine 1.00 GFR Calculation 101 BUN/Creatinine Ratio 21.00 H Glucose 100 Calculated Osmolality 281.4 Calcium 8.7 Magnesium 2.2 Troponin I 19.700 H D - Imaging and Cardiology Cardiology Procedure: report reviewed by me Procedure: Chest x-ray: report reviewed by me, Ultrasound: report reviewed by me (Echo) DS: Provider Date of admission: 05/25/17 21:38 Primary care physician: . No PCP Attending physician on admission: Shamir Mckinnon MD Consults: 05/25/17 22:06 Consult to Cardiac Rehabilitation [CONS] Routine Reason for Cardiac Rehabilitation: Risk Factor Modification Other Consult Comment: Evaluate and recommend Discharging clinician: Sarah Adrian NP Expected date of discharge: 05/28/17
[2017-05-28 12:33] VITALS: BP 119/57
[2017-05-28] MEDS ORDERED: ATORVASTATIN 20 MG TABLET PO SCH (21:00)
== END 2017-05-28 13:35 | disposition home or self-care (01) | DRG 249 ==
LOC: N.ED 19:51 → N.CC 21:38 → N.TELES 05-27 10:06
PROVIDERS: ADMIT Internal Medicine Cardiovascular Disease; ATTEND Internal Medicine Cardiovascular Disease

== ENCOUNTER 2017-06-06 16:11 | Inpatient (IN) ==
[2017-06-06] MEDS ORDERED: ALBUTEROL/IPRATROPIUM 3 ML NEB RESP TX STA (16:34)
[2017-06-06] MEDS ORDERED: FUROSEMIDE 100 MG/10 ML VIAL IV STA (16:34)
[2017-06-06] MEDS ORDERED: ACETAMINOPHEN 325 MG TABLET PO PRN (16:36)
[2017-06-06] MEDS ORDERED: MAGNESIUM SULF RIDER 4 GM in PREMIX 1 EACH IV PRN (16:36)
[2017-06-06] MEDS ORDERED: ONDANSETRON 4 MG/2 ML VIAL IV PRN (16:36)
[2017-06-06] MEDS ORDERED: MAGNESIUM SULF RIDER 2 GM in PREMIX 1 EACH IV PRN ×2 (16:36→19:31)
[2017-06-06] MEDS ORDERED: DOCUSATE SODIUM 100 MG CAPSULE PO PRN (16:36)
[2017-06-06] MEDS ORDERED: FUROSEMIDE 100 MG/10 ML VIAL ONE (16:58)
[2017-06-06 17:01] LABS: Basophils # 0.1 10*3/uL (0.0-0.2); Basophils % 0.9 % (0.0-0.8); Eosinophils # 0.3 10*3/uL (0.0-0.87); Eosinophils % 3.5 % (0.00-10.9); Hematocrit 43.9 VOL% (42.0-52.0); Hemoglobin 14.4 GM/DL (14.0-18.0); Immature Granulocytes % 1.2 %; Lymphocytes # 1.9 10*3/uL (1.4-4.0); Lymphocytes % 22.5 % (21.2-54.2); Mean Corpuscular HGB Conc 32.8 GM/DL (32-36); Mean Corpuscular Hemoglobin 32 PG (27-34); Mean Corpuscular Volume 96.7 FL (87-102); Monocytes # 0.5 10*3/uL (0.11-0.8); Monocytes % 5.4 % (1.7-12.7); Neutrophils # 5.7 10*3/uL (1.4-7.4); Neutrophils % 66.5 % (38.7-73.9); Platelet Count 308 T/CUMM (130-400); Red Blood Count 4.54 MC/CUMM (3.8-5.5); Red Cell Distribution Width 13.3 % (9.3-17.3); White Blood Count 8.6 T/CUMM (4-12)
--- NOTE | 2017-06-06 17:30 | Emergency Department Note ---
Andry Sue Brooke, am scribing for, and in the presence of, Jigar Thompson MD 16:39. Jay Sue Phillip K, MD, personally performed the services described in this documentation, ascribed by Gloria Wilde in my presence, and it is both accurate and complete [id number] . Arrival - Arrival Chief Complaint: Shortness of Breath Stated Complaint: chest pain ED Nursing Triage Note: Brought in by EMS-transfer from [facility] for further evalauation of SOB, which he states started on 05/27/17 when he was discharged from here. Was initially sent here for a STEMI today, but EKG was reviewed by Dr. Solis who states that there are no changes from his previous EKGs. Denies CP. Mode of Arrival: Stretcher Limitations: No Limitations Source: Patient, EMS, RN Notes Reviewed Time Seen by Provider: 06/06/17 16:30 - History of Present Illness HPI Narrative: Patient is a 56 year old male brought into the ED by EMS from [facility] [place] [facility] for further evaluation of shortness of breath. Patient was discharged from here on May 27, 2017, after having an AZ. He says he had the shortness of breath the day he left here. The shortness of breath is worsened when laying flat. He says he has also had a "little" cough that is non-productive. Patient denies having fever, chest pain, abdominal pain, and lower extremity edema. Dr. Solis prescribed him Brilinta before being discharged. Patient did not have any x-rays done while in the hospital. He has PMHx of HTN, CAD, anxiety, and depression. He says he has never been told that he has COPD. Onset (ago): week(s) (2) Allergies/Adverse Reactions: Allergies Allergy/AdvReac Type Severity Reaction Status Date / Time morphine AdvReac Mild Agitated Verified 03/01/17 06:40 Home Medications: Home Medications Medication Instructions Recorded Confirmed Type Aspirin EC Tab 81 mg PO DAILY #30 tablet 05/28/17 06/06/17 Rx Atorvastatin [Lipitor] 20 mg PO BEDTIME #30 tablet 05/28/17 06/06/17 Rx Carvedilol [Coreg] 3.125 mg PO BID W/MEALS #60 tablet 05/28/17 06/06/17 Rx Ticagrelor [Brilinta] 90 mg PO BID #60 tablet 05/28/17 06/06/17 Rx Review of System - Review of System 12 point system: reviewed and no additional remarkable complaints except as stated - Review of System Constitutional: Absent: fever Respiratory: Present: cough (non-productive), other (shortness of breath). Absent: respiratory distress Cardiovascular: Absent: chest pain Gastrointestinal: Absent: abdominal pain Skin: Absent: rash Medical,Surgical,& Family Hx - Medical History Cardio: History of: CAD, Hypertension, AZ, Cardiovascular Problems Psychological: History of: Anxiety Disorders, Depression Gastrointestinal: History of: GI Problems (left groin hernia) Musculoskeletal: No history of: Amputation - Surgical History Cardiac Surgeries: Sugical HX of: Cardiac Catheterization, Cardiac Surgery Thoracic Surgeries: Patient denies;: Organ Transplant Neurologic Surgeries: Patient denies: Neurologic Surgery HEENT Surgeries: Patient denies: Tonsilectomy & Adenoidectomy Abdominal Surgeries: Surgical HX of: Hernia Repair (1 years old) Patient denies: Abdominal Surgery Reproductive Surgeries: Patient denies;: Genitourinary Surgery - Social History Smoking Status: Current every day smoker Frequency of Alcohol Use: None Type of Drug Use: None Exam Vital Signs: Vital Signs Temperature 96.6 F L 06/06/17 16:11 Pulse Rate 73 06/06/17 16:37 Respiratory Rate 22 06/06/17 16:37 Blood Pressure 120/87 06/06/17 16:37 O2 Sat by Pulse Oximetry 95 06/06/17 16:48 - General General appearance: alert, in no apparent distress - Head Head exam: Present: atraumatic, normocephalic - Eye Eye exam: Present: normal appearance, PERRL, EOMI - ENT ENT exam: Present: normal exam - Neck Neck exam: Present: normal inspection - Chest Chest inspection: Present: normal inspection, symmetric chest wall rise - Respiratory Respiratory exam: Present: rales (bibasilar), wheezes (expiratory) - Cardiovascular Cardiovascular exam: Present: regular rate, normal rhythm, normal heart sounds - Abdominal Exam Abdominal exam: Present: soft, normal bowel sounds. Absent: distention, tenderness - Extremities Exam Extremities exam: Present: normal inspection - Back Exam Back exam: Present: normal inspection - Neurological Exam Neurological exam: Present: alert, oriented X3 - Psychiatric Psychiatric exam: Present: normal affect, normal mood - Skin Skin exam: Present: warm, dry, intact, normal color Results - Labs CBC & BMP: 06/06/17 16:53 Lab Results: I have reviewed the patients labs - EKG EKG results: interpreted by [facility], sinus rhythm (Recent anterolateral AZ, unchanged from previous EKG, discussed with Dr. Solis) - Diagnostic Findings Procedure: Chest x-ray: report reviewed by me (Unchanged from previous chest x- ray) Disposition Clinical Impression: Acute exacerbation of chronic obstructive airways disease, Bronchospasm Case discussed with: patient, patient's physician
--- NOTE | 2017-06-06 17:34 | XRay Report ---
History: Shortness of breath Date: 06/06/2017 Study: Chest x-ray AP portable Comparison exam: May 26, 2017 The cardiac silhouette is not enlarged. The mediastinal contours are stable in this patient status post prior median sternotomy. There is no definite acute infiltrate. There is some moderate elevation of the right hemidiaphragm with some mild strandy subsegmental atelectasis in the right lung base, similar to the previous study. There is no obvious joint effusion. There is mild thoracic spondylosis. Impression: No gross overall change from the previous study PROCEDURE INTERPRETED AT [facility] DEPARTMENT OF RADIOLOGY Final Report Signed by: Dr. Harriet Tierney
[2017-06-06 18:27] LABS: Albumin 3.1 G/DL (3.4-5.0); Calcium 9.2 MG/DL (8.5-10.1)
[2017-06-06 18:28] LABS: Magnesium 2.6 MG/DL (1.8-2.4); Osmolality,Calculated 279.5 MOS/KG (273-304)
[2017-06-06 18:34] LABS: Bilirubin,Total 0.4 MG/DL (0.2-1.0); Total Protein 7.3 G/DL (6.4-8.3)
[2017-06-06 18:36] LABS: Troponin I Only 0.135 NG/ML (0.00-0.045)
[2017-06-06] MEDS ORDERED: NITROGLYCERIN SL 0.4 MG TABLET SL ONE (19:31)
[2017-06-06] MEDS ORDERED: POTASSIUM CHLORIDE 20 MEQ TABLET PO PRN (19:31)
[2017-06-06] MEDS: ALBUTEROL/IPRATROPIUM 3 ML NEB RESP TX SCH (19:53)
[2017-06-06] MEDS: ENOXAPARIN 80 MG/0.8 ML SYRINGE SUBCUT SCH (21:39)
[2017-06-06] MEDS: ATORVASTATIN 20 MG TABLET PO SCH (21:39)
[2017-06-06] MEDS: CARVEDILOL 3.125 MG TABLET PO SCH (21:40)
[2017-06-07] MEDS: ALBUTEROL/IPRATROPIUM 3 ML NEB RESP TX SCH ×5 (00:40→23:51)
[2017-06-07 05:41] LABS: Basophils # 0.1 10*3/uL (0.0-0.2); Eosinophils # 0.3 10*3/uL (0.0-0.87); Eosinophils % 3.6 % (0.00-10.9); Hematocrit 42.7 VOL% (42.0-52.0); Hemoglobin 14.5 GM/DL (14.0-18.0); Immature Granulocytes % 0.8 %; Immature Granulocytes Absolute 0.07 #; Lymphocytes # 2.5 10*3/uL (1.4-4.0); Lymphocytes % 28.7 % (21.2-54.2); Mean Corpuscular Hemoglobin 32 PG (27-34); Mean Corpuscular Volume 93.4 FL (87-102); Mean Platelet Volume 10.4 FL (9.6-12.0); Monocytes # 0.5 10*3/uL (0.11-0.8); Monocytes % 5.3 % (1.7-12.7); Neutrophils # 5.3 10*3/uL (1.4-7.4); Neutrophils % 60.6 % (38.7-73.9); Platelet Count 317 T/CUMM (130-400); Red Blood Count 4.57 MC/CUMM (3.8-5.5); Red Cell Distribution Width 13.4 % (9.3-17.3); White Blood Count 8.7 T/CUMM (4-12)
[2017-06-07 06:50] LABS: Bilirubin,Total 0.5 MG/DL (0.2-1.0); Calcium 8.8 MG/DL (8.5-10.1); Osmolality,Calculated 281.4 MOS/KG (273-304); Potassium 3.8 MMOL/L (3.5-5.1); Total Protein 6.9 G/DL (6.4-8.3)
[2017-06-07 06:52] LABS: Troponin I Only 0.136 NG/ML (0.00-0.045)
--- NOTE | 2017-06-07 08:43 | EKG Report ---
Stationary ECG Study [facility] Test Date: 06/07/2017 7:43:01 AM Pat Name: REE BRYAN Department: Room: 290 Gender: M Metalizer: DANAY : 1960 Requested by: Mary Solis Order Number: [id number] Nat MD: MARY SOLIS Intervals [place] Rate: 68 P: 67 PA: 138 QRS: 153 QRSD: 125 T: 139 QT: 459 QTc: 476 Interpretive Statements SINUS RHYTHM POSSIBLE RIGHT VENTRICULAR HYPERTROPHY ANTEROLATERAL MYOCARDIAL INFARCTION, PROBABLY RECENT ACUTE [place] INTERPRETATION BASED ON A DEFAULT AGE OF 40 YEARS Electronically Signed On 06-07-17 17:07:27 CDT by MARY SOLIS [email or web address]
--- NOTE | 2017-06-07 09:09 | EKG Report ---
Stationary ECG Study [facility] ER Test Date: 06/06/2017 4:19:58 PM Pat Name: REE BRYAN Department: Room: 290 Gender: M Recenterer: : 1960 Requested by: Jigar Lee Order Number: [id number] Nat MD: MARY MAGDALENO Intervals [place] Rate: 71 P: 65 NE: 152 QRS: 141 QRSD: 132 T: 132 QT: 440 QTc: 462 Interpretive Statements SINUS RHYTHM WITH OCCASIONAL SUPRAVENTRICULAR PREMATURE COMPLEXES INTRAVENTRICULAR CONDUCTION DELAY POSSIBLE RIGHT VENTRICULAR HYPERTROPHY ANTEROLATERAL MYOCARDIAL INFARCTION, PROBABLY RECENT ACUTE OR Electronically Signed On 06-07-17 17:05:43 CDT by MARY MAGDALENO [id number]
[2017-06-07] MEDS: CARVEDILOL 3.125 MG TABLET PO SCH ×2 (10:06→17:10)
[2017-06-07] MEDS: CLOPIDOGREL 75 MG TABLET PO SCH (10:06)
[2017-06-07] MEDS: PANTOPRAZOLE 40 MG TABLET PO SCH (10:06)
[2017-06-07] MEDS: ASPIRIN EC 81 MG TABLET PO SCH (10:06)
[2017-06-07] MEDS: ENOXAPARIN 80 MG/0.8 ML SYRINGE SUBCUT SCH ×2 (10:07→20:43)
--- NOTE | 2017-06-07 13:23 | CT Report ---
CT chest w con Indication: Dyspnea, coronary artery disease Comparison: None available Technique: Axial CT imaging of the chest was done at 3 mm intervals with intravenous contrast. Contrast dose was Omnipaque 350. Findings: The lungs show no evidence of infiltrates or airspace disease. No nodule or mass is identified. No effusion or pneumothorax is seen. Areas of increased density are seen in the coronary arteries. Cardiac surgery changes are present and portions of the bypass graft appear patent although this exam was not optimized for vascular abnormalities. Otherwise the heart heart, mediastinum and great vessels appear within normal limits. No other abnormality is identified. Impression: No evidence of acute process demonstrated. This CT exam was performed using one or more the following dose reduction techniques: Automated exposure control, adjustment of the MA and/or KV according to patient size, or use of iterative reconstruction technique. PROCEDURE INTERPRETED AT [facility] DEPARTMENT OF RADIOLOGY Final Report Signed by: Dr. Daljit Cobb
[2017-06-07] MEDS ORDERED: CLOPIDOGREL 300 MG TABLET PO ONE (13:24)
--- NOTE | 2017-06-07 13:43 | Cardiology History & Physical ---
Lang Sue Vanessa, RN, am scribing for, and in the presence of, Jeffry Cage MD 13 :43. Assessment and Plan - Time spent with patient Time spent with patient: Greater than 30 minutes (Assessment, planning, documentation, meds reviewed) (1) Dyspnea Status: Acute Assessment and plan: 56 year old WM, followed by dr. Mckinnon. Past history of CAD with stents, CABG, HTN, chronic tobaccoism, and noncompliance. Also has known ischemic cardiomyopathy, EF 20-25% for medical management. Recent acute anterolateral STEMI with bare metal stent to OM1 (due to past noncompliance) and discharged home on 05/28. Now admitted with shortness of breath and leg cramping. Acute MD ruled out upon arrival. Echo: EF 20-25%, anteroapical and inferior basal akinesis, chronic apical thrombus, mild diastolic dysfunction, and pulmonary hypertension with PAP 45 mmHg EKG: SR with occ PAC/PVC, no ischemic changes from previous -DYSPNEA - EDP was elevated elevated on recent discharge, he was not on diuretic. Severe systolic dysfunction, ischemic cardiomyopathy. The shortness of breath started, after he started Brilinta. Chest CT did not show PE or effusion. Exam does not suggest pericarditis. -Lasix 40 mg IV twice daily. Nebs. Imdur 30 mg qd -Stop Brilinta. Oral Plavix load, then 75 mg daily. -Continue low-dose beta-georgette. The blood pressure in low 100s, start lisinopril 2.5 mg daily. -Continue statin. -Keep on telemetry. Monitor and replete lites. -LV apical thrombus. This was thought to be chronic on recent evaluation and anticoagulation was not initiated. Will continue dual antiplatelets -If EF not recovering, he will be a candidate for ICD. -He stopped smoking. Current Visit: Yes (2) Acute exacerbation of chronic obstructive airways disease Status: Acute Assessment and plan: SEE PLAN OF CARE LISTED ABOVE. Current Visit: Yes (3) Bronchospasm Status: Acute Assessment and plan: SEE PLAN OF CARE LISTED ABOVE. Current Visit: Yes (4) Noncompliance Status: Chronic Assessment and plan: SEE PLAN OF CARE LISTED ABOVE. Current Visit: No (5) CAD (coronary artery disease) Status: Chronic Assessment and plan: SEE PLAN OF CARE LISTED ABOVE. Current Visit: No (6) Dyslipidemia Status: Chronic Assessment and plan: SEE PLAN OF CARE LISTED ABOVE. Current Visit: No (7) Hypertension Status: Chronic Assessment and plan: SEE PLAN OF CARE LISTED ABOVE. Current Visit: No (8) Ischemic cardiomyopathy Status: Chronic Assessment and plan: SEE PLAN OF CARE LISTED ABOVE. Current Visit: No (9) S/P CABG (coronary artery bypass graft) Status: Chronic Assessment and plan: SEE PLAN OF CARE LISTED ABOVE. Current Visit: No (10) Tobacco use Status: Chronic Assessment and plan: SEE PLAN OF CARE LISTED ABOVE. Current Visit: No History of Present Illness Chief complaint: Dyspnea History of present illness: FASHION MARKETER: DR. MCKINNON (NEW) Mr. Nick, 56 year old WM, PMHx hypertension, PVD, hyperlipidemia, medical noncompliance, chronic tobaccoism. Patient has known history of CAD and MD, status post anterior infarct with LAD stent September 2009 with restenting required in December and April 2010 at [facility] in [place] due to noncompliance with Plavix. Status post coronary artery bypass grafting 2 in September 2010 with CARROLL to LAD and SVG to diagonal per Dr. Tate. Post CABG in 2010, he was lost to follow-up after leaving the hospital AGAINST MEDICAL ADVICE. Most recently presented on May 25, 2017, in transfer from [facility] with acute anterolateral STEMI. Taken directly for emergent cardiac catheterization with subsequent PCI of OM1 using bare metal stent (due to past noncompliance). CARROLL graft open, but he has ischemic cardiomyopathy, EF 20-25%, anteroapical and inferior basal akinesis, chronic apical thrombus, mild diastolic dysfunction, and pulmonary hypertension with PAP 45 mmHg. Post MD , he was started on dual antiplatelet therapy with low-dose ASA and Brilinta. The importance of medication compliance, especially with antiplatelet medications, was explicitly discussed with him. He increased his activity level , had no trouble ambulating around room and christian, and had no c/o chest pain, heaviness, tightness, dyspnea. He was also seen by cardiac rehab, was discharged with appropriate cardiac medications, and was given follow-up appointment with Dr. Mckinnon for June 11. He was not started on CHRISTEN inhibitor because BP would not allow. Mr. Nick was transferred back to [facility] yesterday evening from [facility] with complaints of shortness of breath and pain to bilateral lower extremities with walking. He was taken directly to cardiac quality assurance lab technician, Dr. Solis reviewed EKG and determined to be unchanged from previous EKGs. He is now admitted for further observation and evaluation of dyspnea. Noted in ER to have wheezing and rales. Received IV Lasix and DuoNeb with good urine output and improved dyspnea. Minimally elevated BNP, 201. Chest x-ray with elevation of right hemidiaphragm and mild atelectasis of right lung base, unchanged from last film. CTNI levels stable 0.135, 0.136. Stable renal function, creatinine 1.0. Electrolytes within acceptable range. Cell counts unremarkable. Denies overt S/S bleeding, melena, abd pain. No chest pain or discomfort. No cough, fever, chills. Reports he has not smoked in 10 days since acute MD, and says he has been 100% compliant with medications. Reports inability to lie flat for the past week due to feeling short of breath. No PND, palpitatons, LE edema. Admits bundy and calf pain after walking "only 5-10 feet" and some dyspnea with exertion. Sinus rhythm, HR 70s with occasional PAC. SBP 105-120 mmHg. Home Medications Medication Instructions Recorded Confirmed Type Aspirin EC Tab 81 mg PO DAILY #30 tablet 05/28/17 06/06/17 Rx Atorvastatin [Lipitor] 20 mg PO BEDTIME #30 tablet 05/28/17 06/06/17 Rx Carvedilol [Coreg] 3.125 mg PO BID W/MEALS #60 tablet 05/28/17 06/06/17 Rx Ticagrelor [Brilinta] 90 mg PO BID #60 tablet 05/28/17 06/06/17 Rx Allergies Allergy/AdvReac Type Severity Reaction Status Date / Time morphine AdvReac Mild Agitated Verified 03/01/17 06:40 - Constitutional Constitutional: Present: weakness. Absent: anorexia, chills, daytime sleepiness , fatigue, frequent falls, headache(s), night sweats, weight gain, weight loss - EENT Eyes: Absent: blurry vision, loss of vision Ears: Absent: decreased hearing Nose, mouth and throat: Absent: dysphagia, epistaxis, nasal congestion, neck pain, sinus pressure, throat swelling, tongue swelling, vertigo - Cardiovascular Cardiovascular: Present: dyspnea on exertion. Absent: chest pain at rest, chest pain with activity, diaphoresis, dyspnea, edema, radiating jaw, neck or arm pain, lightheadedness, orthopnea, palpitations, PND - Respiratory Respiratory: Present: wheezing. Absent: cough, hemoptysis, dyspnea on exertion , change in phlegm color - Gastrointestinal Gastrointestinal: Absent: abdominal pain, change in bowel habits, constipation, diarrhea, dysphagia, early satiety, heartburn, hematemesis, melena, nausea, vomiting, jaundice - Genitourinary Genitourinary: Absent: difficulty urinating, dysuria, flank pain, hematuria, nocturia - Musculoskeletal Musculoskeletal: Present: muscle cramps (reports cramping of BLEs with ambulation x 1 week). Absent: arthralgias, myalgias - Neurological Neurological: Absent: abnormal gait, abnormal speech, confusion, dizziness, syncope, tremor(s) - Psychiatric Psychiatric: Present: anxiety. Absent: depression - Endocrine Endocrine: Absent: cold intolerance, heat intolerance, polydipsia - Hematologic/Lymphatic Hematologic/Lymphatic: Absent: easy bleeding, easy bruising Medical,Surgical,& Family Hx - Medical History Cardio: History of: CAD, Hypertension, MD, Cardiovascular Problems Psychological: History of: Anxiety Disorders, Depression Neurology: No history of: TIA, Vertigo Endocrine: History of: Dyslipidemia No history of: Diabetes Mellitus (IDDM), Thyroid Disorder Respiratory: History of: COPD, Pulmonary Hypertension Renal: No history of: Renal Failure Genitourinary: No history of: Kidney Stones Gastrointestinal: History of: GI Problems (left groin hernia) No history of: Gastrointestinal Bleed Musculoskeletal: No history of: Amputation Hematology: No history of: Anemia Other: No history of: Cancer, HIV - Surgical History Cardiac Surgeries: Sugical HX of: Cardiac Catheterization, Cardiac Surgery Thoracic Surgeries: Patient denies;: Organ Transplant Neurologic Surgeries: Patient denies: Neurologic Surgery HEENT Surgeries: Patient denies: Tonsilectomy & Adenoidectomy Abdominal Surgeries: Surgical HX of: Hernia Repair (1 years old) Patient denies: Abdominal Surgery Reproductive Surgeries: Patient denies;: Genitourinary Surgery - Social History Smoking Status: Current every day smoker Have you smoked in the last 12 months: Yes Time spent discussing smoking cessation with patient: 3 to 10 minutes Frequency of Alcohol Use: None Type of Drug Use: None Functional capacity: independent ambulation Cardiology Physical Exam - Constitutional Vitals: Vital Signs Temp Pulse Resp BP Pulse Ox 97.7 F 72 18 105/68 96 06/07/17 04:00 06/07/17 04:00 06/07/17 06:29 06/07/17 04:00 06/07/17 04:00 Intake and Output 06/06/17 06/07/17 06/07/17 22:59 06:59 14:59 Intake Total 0 / 0 Output Total 300 / 300 Balance -300 / -300 Intake: Oral 0 / 0 Output: Urine 300 / 300 Stool 0 / 0 Other: Voiding Method Urinal Weight 185 lb General appearance: normal weight, no acute distress - Head Head exam: Present: normal inspection. Absent: atraumatic, abrasion, contusion - Eye Eye exam: Present: EOMI. Absent: periorbital swelling, scleral icterus Pupils: Present: DANYA. Absent: dilated, fixed, irregular - Neck Neck exam: Present: normal inspection. Absent: tenderness - Cardiovascular Cardiovascular exam: Present: carotid bruit (left), regular rate and rhythm, systolic murmur. Absent: JVD, tachycardia - GI/Abdominal GI/Abdominal exam: Present: normal bowel sounds, soft. Absent: ascites, firm, guarding, tenderness - Extremities Exam Extremities exam: Present: normal inspection, normal capillary refill, full ROM. Absent: calf tenderness, edema - Back Exam Back exam: Present: normal inspection - Neurological Exam Neurological exam: Present: alert, oriented X3 - Psychiatric Psychiatric exam: Present: normal affect, normal mood - Skin Skin exam: Present: warm, dry, intact. Absent: abrasion, cyanosis, diaphoretic , mottled Result/EKG - Labs CBC & BMP: 06/07/17 05:11 06/07/17 05:11 Lab Results: I have reviewed the past 24 hour labs Labs: Laboratory Results - last 24 hr 06/06/17 06/06/17 06/06/17 16:53 16:53 16:53 WBC 8.6 RBC 4.54 Hgb 14.4 Hct 43.9 MCV 96.7 MCH 32 MCHC 32.8 RDW 13.3 Plt Count 308 MPV 10.0 Neut % (Auto) 66.5 Lymph % (Auto) 22.5 [place] % (Auto) 5.4 Eos % (Auto) 3.5 Baso % (Auto) 0.9 H Neut # (Auto) 5.7 Lymph # (Auto) 1.9 [place] # (Auto) 0.5 Eos # (Auto) 0.3 Baso # (Auto) 0.1 Immature Gran % 1.2 Nucleated RBC % 0.0 Immature Gran # 0.10 Nucleated RBCs # 0.00 Immature Plt Fraction 0.0 Sodium 139 Potassium 5.0 Chloride 107 Carbon Dioxide 26 Anion Gap 11.0 BUN 20 H Creatinine 0.90 GFR Calculation 0 BUN/Creatinine Ratio 22.00 H Glucose 90 Calculated Osmolality 279.5 Calcium 9.2 Magnesium 2.6 H Total Bilirubin 0.40 AST 27 ALT 36 Alkaline Phosphatase 77 Troponin I 0.135 H B-Natriuretic Peptide 201 H Total Protein 7.3 Albumin 3.1 L Globulin 4.2 H Albumin/Globulin Ratio 0.7 L 06/07/17 06/07/17 05:11 05:11 WBC 8.7 RBC 4.57 Hgb 14.5 Hct 42.7 MCV 93.4 MCH 32 MCHC 34.0 RDW 13.4 Plt Count 317 MPV 10.4 Neut % (Auto) 60.6 Lymph % (Auto) 28.7 [place] % (Auto) 5.3 Eos % (Auto) 3.6 Baso % (Auto) 1.0 H Neut # (Auto) 5.3 Lymph # (Auto) 2.5 [place] # (Auto) 0.5 Eos # (Auto) 0.3 Baso # (Auto) 0.1 Immature Gran % 0.8 Nucleated RBC % 0.0 Immature Gran # 0.07 Nucleated RBCs # 0.00 Immature Plt Fraction 0.0 Sodium 140 Potassium 3.8 Chloride 106 Carbon Dioxide 25 Anion Gap 12.8 BUN 23 H Creatinine 1.00 GFR Calculation 100 BUN/Creatinine Ratio 23.00 H Glucose 87 Calculated Osmolality 281.4 Calcium 8.8 Magnesium Total Bilirubin 0.50 AST 18 ALT 35 Alkaline Phosphatase 73 Troponin I 0.136 H B-Natriuretic Peptide Total Protein 6.9 Albumin 3.0 L Globulin 3.9 H Albumin/Globulin Ratio 0.7 L - Diagnostic Findings Procedure: Chest x-ray: image reviewed by me, report reviewed by me - EKG EKG results: interpreted by me, no acute changes EKG shows: sinus rhythm Fauzia Sue Attila, MD, personally performed the services described in this documentation, ascribed by Elena Croft RN in my presence, and it is both accurate and complete .
[2017-06-07] MEDS: FUROSEMIDE 40 MG/4 ML VIAL IV SCH (15:14)
[2017-06-07] MEDS: ISOSORBIDE MONONITRATE 30 MG TABLET PO SCH (15:15)
[2017-06-07] MEDS: ATORVASTATIN 20 MG TABLET PO SCH (20:44)
[2017-06-08] MEDS: FUROSEMIDE 40 MG/4 ML VIAL IV SCH (01:30)
[2017-06-08 04:15] LABS: Basophils # 0.1 10*3/uL (0.0-0.2); Basophils % 1.2 % (0.0-0.8); Eosinophils # 0.3 10*3/uL (0.0-0.87); Eosinophils % 3.9 % (0.00-10.9); Hematocrit 45.7 VOL% (42.0-52.0); Hemoglobin 15.5 GM/DL (14.0-18.0); Immature Granulocytes % 1.1 %; Immature Granulocytes Absolute 0.09 #; Lymphocytes # 1.6 10*3/uL (1.4-4.0); Lymphocytes % 18.8 % (21.2-54.2); Mean Corpuscular HGB Conc 33.9 GM/DL (32-36); Mean Corpuscular Hemoglobin 32 PG (27-34); Mean Corpuscular Volume 92.9 FL (87-102); Mean Platelet Volume 10.4 FL (9.6-12.0); Monocytes # 0.5 10*3/uL (0.11-0.8); Monocytes % 6.1 % (1.7-12.7); Neutrophils # 5.9 10*3/uL (1.4-7.4); Neutrophils % 68.9 % (38.7-73.9); Platelet Count 318 T/CUMM (130-400); Red Blood Count 4.92 MC/CUMM (3.8-5.5); Red Cell Distribution Width 13.4 % (9.3-17.3); White Blood Count 8.5 T/CUMM (4-12)
[2017-06-08 04:44] LABS: Calcium 8.6 MG/DL (8.5-10.1); Magnesium 2.6 MG/DL (1.8-2.4); Osmolality,Calculated 283.4 MOS/KG (273-304); Potassium 3.8 MMOL/L (3.5-5.1)
[2017-06-08] MEDS: ALBUTEROL/IPRATROPIUM 3 ML NEB RESP TX SCH ×3 (08:02→19:43)
[2017-06-08] MEDS: PANTOPRAZOLE 40 MG TABLET PO SCH (08:36)
[2017-06-08] MEDS: ASPIRIN EC 81 MG TABLET PO SCH (08:36)
[2017-06-08] MEDS: LISINOPRIL 2.5 MG TABLET PO SCH (08:36)
[2017-06-08] MEDS: CLOPIDOGREL 75 MG TABLET PO SCH (08:36)
[2017-06-08] MEDS: ISOSORBIDE MONONITRATE 30 MG TABLET PO SCH (08:36)
[2017-06-08] MEDS: CARVEDILOL 3.125 MG TABLET PO SCH (08:36)
[2017-06-08] MEDS: ENOXAPARIN 80 MG/0.8 ML SYRINGE SUBCUT SCH (08:38)
--- NOTE | 2017-06-08 10:45 | Cardiology Progress Note ---
Assessment and Plan (1) Dyspnea Status: Acute Assessment and plan: 56 year old WM, followed by dr. Mckinnon. Past history of CAD with stents, CABG, HTN, chronic tobaccoism, and noncompliance. Also has known ischemic cardiomyopathy, EF 20-25% for medical management. Recent acute anterolateral STEMI with bare metal stent to OM1 (due to past noncompliance) and discharged home on 05/28. Now admitted with shortness of breath and leg cramping. Acute [place] ruled out upon arrival. Echo: EF 20-25%, anteroapical and inferior basal akinesis, chronic apical thrombus, mild diastolic dysfunction, and pulmonary hypertension with PAP 45 mmHg EKG: SR with occ PAC/PVC, no ischemic changes from previous -Dyspnea -improved. He had high EDP, and was also on Brilinta. Switch Lasix to p.o., he was switched to Plavix. Chest CT did not show PE or effusion. -Continue Imdur 30 mg qd -Increase Coreg to 6.25 mg twice daily, continue low-dose CHRISTEN inhibitor. Severe ischemic cardiomyopathy. Blood pressure normal -Continue statin. -Keep on telemetry. Monitor and replete lites. -LV apical thrombus. This was thought to be chronic on recent evaluation and anticoagulation was not initiated. Will continue dual antiplatelets -Claudication with light activity. Arterial ultrasound, if his severe PAD, will obtain vascular surgical consult. -If EF not recovering, he will be a candidate for ICD. -He stopped smoking. Current Visit: Yes (2) Acute exacerbation of chronic obstructive airways disease Status: Acute Assessment and plan: SEE PLAN OF CARE LISTED ABOVE. Current Visit: Yes (3) Bronchospasm Status: Acute Assessment and plan: SEE PLAN OF CARE LISTED ABOVE. Current Visit: Yes (4) Noncompliance Status: Chronic Assessment and plan: SEE PLAN OF CARE LISTED ABOVE. Current Visit: No (5) CAD (coronary artery disease) Status: Chronic Assessment and plan: SEE PLAN OF CARE LISTED ABOVE. Current Visit: No (6) Dyslipidemia Status: Chronic Assessment and plan: SEE PLAN OF CARE LISTED ABOVE. Current Visit: No (7) Hypertension Status: Chronic Assessment and plan: SEE PLAN OF CARE LISTED ABOVE. Current Visit: No (8) Ischemic cardiomyopathy Status: Chronic Assessment and plan: SEE PLAN OF CARE LISTED ABOVE. Current Visit: No (9) S/P CABG (coronary artery bypass graft) Status: Chronic Assessment and plan: SEE PLAN OF CARE LISTED ABOVE. Current Visit: No (10) Tobacco use Status: Chronic Assessment and plan: SEE PLAN OF CARE LISTED ABOVE. Current Visit: No Cardiology - PN: Subj Interval history: He had minimal chest discomfort last night. He has bilateral lower extremity pain, cramping with 10-15 yards of walking. No significant arrhythmia on telemetry blood pressure remains well controlled Exam (Progress Note) - Constitutional Vitals: Period Temp Pulse Resp BP Sys/Jackson Pulse Ox Last 24 Hr 97.1 F-98.1 F 71-89 16-20 99-125/70-96 94-99 General appearance: normal weight, no acute distress - Head Head exam: Present: normal inspection, normocephalic. Absent: contusion - Eye Eye exam: Absent: periorbital swelling, scleral icterus, laceration to eyelids Pupils: Absent: dilated - ENT ENT exam: Present: normal external ear exam - Neck Neck exam: Present: normal inspection - Respiratory Respiratory exam: Present: clear to auscultation bilaterally, chest wall tenderness. Absent: accessory muscle use, rhonchi, wheezes - Cardiovascular Cardiovascular exam: Present: regular rate and rhythm, systolic murmur. Absent : JVD - GI/Abdominal GI/Abdominal exam: Present: normal bowel sounds. Absent: distended - Extremities Exam Extremities exam: Present: normal inspection, normal capillary refill. Absent: edema - Back Exam Back exam: Present: normal inspection - Neurological Exam Neurological exam: Present: alert, oriented X3 - Psychiatric Psychiatric exam: Present: normal affect, normal mood - Skin Skin exam: Present: normal color, warm. Absent: cyanosis Result/EKG - Labs CBC & BMP: 06/08/17 03:49 06/08/17 03:49 Lab Results: I have reviewed the past 24 hour labs Labs: Laboratory Results - last 24 hr 06/08/17 06/08/17 03:49 03:49 WBC 8.5 RBC 4.92 Hgb 15.5 Hct 45.7 MCV 92.9 MCH 32 MCHC 33.9 RDW 13.4 Plt Count 318 MPV 10.4 Neut % (Auto) 68.9 Lymph % (Auto) 18.8 L [place] % (Auto) 6.1 Eos % (Auto) 3.9 Baso % (Auto) 1.2 H Neut # (Auto) 5.9 Lymph # (Auto) 1.6 [place] # (Auto) 0.5 Eos # (Auto) 0.3 Baso # (Auto) 0.1 Immature Gran % 1.1 Nucleated RBC % 0.0 Immature Gran # 0.09 Nucleated RBCs # 0.00 Immature Plt Fraction 0.0 Sodium 140 Potassium 3.8 Chloride 104 Carbon Dioxide 27 Anion Gap 12.8 BUN 27 H Creatinine 1.10 GFR Calculation 89 BUN/Creatinine Ratio 24.00 H Glucose 100 Calculated Osmolality 283.4 Calcium 8.6 Magnesium 2.6 H - EKG EKG results: interpreted by me Specialty Discharge - Follow Up or Referrals
[2017-06-08] MEDS: FUROSEMIDE 40 MG TABLET PO SCH (16:33)
[2017-06-08] MEDS: CARVEDILOL 6.25 MG TABLET PO SCH (16:34)
[2017-06-08] MEDS: ATORVASTATIN 20 MG TABLET PO SCH (20:22)
[2017-06-09] MEDS: ALBUTEROL/IPRATROPIUM 3 ML NEB RESP TX SCH ×4 (00:40→19:07)
[2017-06-09 04:17] LABS: Basophils # 0.1 10*3/uL (0.0-0.2); Basophils % 0.7 % (0.0-0.8); Eosinophils # 0.4 10*3/uL (0.0-0.87); Eosinophils % 4.1 % (0.00-10.9); Hematocrit 44.8 VOL% (42.0-52.0); Hemoglobin 15.4 GM/DL (14.0-18.0); Immature Granulocytes Absolute 0.09 #; Lymphocytes % 21.7 % (21.2-54.2); Mean Corpuscular HGB Conc 34.4 GM/DL (32-36); Mean Corpuscular Hemoglobin 32 PG (27-34); Mean Corpuscular Volume 93.1 FL (87-102); Mean Platelet Volume 10.2 FL (9.6-12.0); Monocytes # 0.6 10*3/uL (0.11-0.8); Monocytes % 6.1 % (1.7-12.7); Neutrophils # 6.1 10*3/uL (1.4-7.4); Neutrophils % 66.4 % (38.7-73.9); Platelet Count 305 T/CUMM (130-400); Red Blood Count 4.81 MC/CUMM (3.8-5.5); Red Cell Distribution Width 13.3 % (9.3-17.3); White Blood Count 9.2 T/CUMM (4-12)
[2017-06-09 05:51] LABS: Calcium 8.9 MG/DL (8.5-10.1); Magnesium 2.5 MG/DL (1.8-2.4); Osmolality,Calculated 279.7 MOS/KG (273-304); Potassium 4.1 MMOL/L (3.5-5.1)
[2017-06-09] MEDS: LISINOPRIL 2.5 MG TABLET PO SCH (09:43)
[2017-06-09] MEDS: CARVEDILOL 6.25 MG TABLET PO SCH ×2 (09:43→16:36)
[2017-06-09] MEDS: FUROSEMIDE 40 MG TABLET PO SCH ×2 (09:43→16:36)
[2017-06-09] MEDS: CLOPIDOGREL 75 MG TABLET PO SCH (09:43)
[2017-06-09] MEDS: ISOSORBIDE MONONITRATE 30 MG TABLET PO SCH (09:43)
[2017-06-09] MEDS: ASPIRIN EC 81 MG TABLET PO SCH (09:43)
[2017-06-09] MEDS: PANTOPRAZOLE 40 MG TABLET PO SCH (09:43)
--- NOTE | 2017-06-09 11:10 | Cardiology Progress Note ---
Assessment and Plan (1) Dyspnea Status: Acute Assessment and plan: 56 year old WM, followed by dr. Mckinnon. Past history of CAD with stents, CABG, HTN, chronic tobaccoism, and noncompliance. Also has known ischemic cardiomyopathy, EF 20-25% for medical management. Recent acute anterolateral STEMI with bare metal stent to OM1 (due to past noncompliance) and discharged home on 05/28. Now admitted with shortness of breath and leg cramping. Acute [place] ruled out upon arrival. Echo: EF 20-25%, anteroapical and inferior basal akinesis, chronic apical thrombus, mild diastolic dysfunction, and pulmonary hypertension with PAP 45 mmHg EKG: SR with occ PAC/PVC, no ischemic changes from previous -Dyspnea -improved. He had high EDP, and was also on Brilinta. Switched Lasix to p.o., he was switched to Plavix. Chest CT did not show PE or effusion. -Continue Imdur 30 mg qd. Chest pain improved. -Increased Coreg to 6.25 mg twice daily, continue low-dose CHRISTEN inhibitor. Severe ischemic cardiomyopathy. Blood pressure normal -Continue statin. -LV apical thrombus. This was thought to be chronic on recent evaluation and anticoagulation was not initiated. Will continue dual antiplatelets -Claudication with light activity. Arterial ultrasound ordered. He may need inpatient evaluation for revascularization as symptoms seem to be quite limiting. No critical ischemia at rest. -If EF not recovering, he will be a candidate for ICD. -He stopped smoking. Current Visit: Yes (2) Acute exacerbation of chronic obstructive airways disease Status: Acute Assessment and plan: SEE PLAN OF CARE LISTED ABOVE. Current Visit: Yes (3) Bronchospasm Status: Acute Assessment and plan: SEE PLAN OF CARE LISTED ABOVE. Current Visit: Yes (4) Noncompliance Status: Chronic Assessment and plan: SEE PLAN OF CARE LISTED ABOVE. Current Visit: No (5) CAD (coronary artery disease) Status: Chronic Assessment and plan: SEE PLAN OF CARE LISTED ABOVE. Current Visit: No (6) Dyslipidemia Status: Chronic Assessment and plan: SEE PLAN OF CARE LISTED ABOVE. Current Visit: No (7) Hypertension Status: Chronic Assessment and plan: SEE PLAN OF CARE LISTED ABOVE. Current Visit: No (8) Ischemic cardiomyopathy Status: Chronic Assessment and plan: SEE PLAN OF CARE LISTED ABOVE. Current Visit: No (9) S/P CABG (coronary artery bypass graft) Status: Chronic Assessment and plan: SEE PLAN OF CARE LISTED ABOVE. Current Visit: No (10) Tobacco use Status: Chronic Assessment and plan: SEE PLAN OF CARE LISTED ABOVE. Current Visit: No Cardiology - PN: Subj Interval history: He is feeling better. He had few seconds of pinching chest discomfort. The claudication is still quite severe. Exam (Progress Note) - Constitutional Vitals: Period Temp Pulse Resp BP Sys/Jackson Pulse Ox Last 24 Hr 97.2 F-98.4 F 73-91 16-20 104-128/64-80 93-99 General appearance: normal weight, no acute distress - Head Head exam: Present: normal inspection. Absent: contusion - Eye Eye exam: Absent: conjunctival injection, scleral icterus Pupils: Absent: dilated - ENT ENT exam: Present: normal external ear exam - Neck Neck exam: Present: normal inspection - Respiratory Respiratory exam: Present: clear to auscultation bilaterally. Absent: chest wall tenderness - Cardiovascular Cardiovascular exam: Present: regular rate and rhythm. Absent: JVD, systolic murmur, tachycardia - GI/Abdominal GI/Abdominal exam: Present: normal bowel sounds. Absent: ascites, distended - Extremities Exam Extremities exam: Present: normal inspection, normal capillary refill. Absent: edema - Back Exam Back exam: Present: normal inspection - Neurological Exam Neurological exam: Present: alert, oriented X3 - Psychiatric Psychiatric exam: Present: normal affect, normal mood - Skin Skin exam: Present: normal color, warm. Absent: cyanosis Result/EKG - Labs CBC & BMP: 06/09/17 04:05 06/09/17 04:05 Lab Results: I have reviewed the past 24 hour labs Labs: Laboratory Results - last 24 hr 06/09/17 06/09/17 04:05 04:05 WBC 9.2 RBC 4.81 Hgb 15.4 Hct 44.8 MCV 93.1 MCH 32 MCHC 34.4 RDW 13.3 Plt Count 305 MPV 10.2 Neut % (Auto) 66.4 Lymph % (Auto) 21.7 [place] % (Auto) 6.1 Eos % (Auto) 4.1 Baso % (Auto) 0.7 Neut # (Auto) 6.1 Lymph # (Auto) 2.0 [place] # (Auto) 0.6 Eos # (Auto) 0.4 Baso # (Auto) 0.1 Immature Gran % 1.0 Nucleated RBC % 0.0 Immature Gran # 0.09 Nucleated RBCs # 0.00 Immature Plt Fraction 0.0 Sodium 138 Potassium 4.1 Chloride 104 Carbon Dioxide 27 Anion Gap 11.1 BUN 27 H Creatinine 1.10 GFR Calculation 88 BUN/Creatinine Ratio 24.00 H Glucose 103 Calculated Osmolality 279.7 Calcium 8.9 Magnesium 2.5 H - EKG EKG results: interpreted by me Specialty Discharge - Follow Up or Referrals
[2017-06-09] MEDS: ATORVASTATIN 20 MG TABLET PO SCH (20:31)
[2017-06-10] MEDS: ALBUTEROL/IPRATROPIUM 3 ML NEB RESP TX SCH ×4 (00:06→19:39)
[2017-06-10 06:08] LABS: Basophils # 0.1 10*3/uL (0.0-0.2); Basophils % 1.1 % (0.0-0.8); Eosinophils # 0.4 10*3/uL (0.0-0.87); Eosinophils % 5.1 % (0.00-10.9); Hematocrit 44.7 VOL% (42.0-52.0); Immature Granulocytes % 1.4 %; Immature Granulocytes Absolute 0.11 #; Lymphocytes # 2.3 10*3/uL (1.4-4.0); Lymphocytes % 29.6 % (21.2-54.2); Mean Corpuscular HGB Conc 33.6 GM/DL (32-36); Mean Corpuscular Hemoglobin 31 PG (27-34); Mean Corpuscular Volume 93.1 FL (87-102); Mean Platelet Volume 10.3 FL (9.6-12.0); Monocytes # 0.5 10*3/uL (0.11-0.8); Monocytes % 6.1 % (1.7-12.7); Neutrophils # 4.5 10*3/uL (1.4-7.4); Neutrophils % 56.7 % (38.7-73.9); Platelet Count 297 T/CUMM (130-400); Red Cell Distribution Width 13.1 % (9.3-17.3); White Blood Count 7.9 T/CUMM (4-12)
[2017-06-10 06:37] LABS: Calcium 8.6 MG/DL (8.5-10.1); Magnesium 2.4 MG/DL (1.8-2.4); Osmolality,Calculated 274.8 MOS/KG (273-304); Potassium 3.9 MMOL/L (3.5-5.1)
[2017-06-10] MEDS: LISINOPRIL 2.5 MG TABLET PO SCH ×2 (09:22→21:40)
[2017-06-10] MEDS: ISOSORBIDE MONONITRATE 30 MG TABLET PO SCH (09:23)
[2017-06-10] MEDS: CARVEDILOL 6.25 MG TABLET PO SCH ×2 (09:23→18:03)
[2017-06-10] MEDS: FUROSEMIDE 40 MG TABLET PO SCH ×2 (09:23→18:03)
[2017-06-10] MEDS: CLOPIDOGREL 75 MG TABLET PO SCH (09:23)
[2017-06-10] MEDS: PANTOPRAZOLE 40 MG TABLET PO SCH (09:23)
[2017-06-10] MEDS: ASPIRIN EC 81 MG TABLET PO SCH (09:23)
--- NOTE | 2017-06-10 17:09 | Cardiology Progress Note ---
<Heena Almaraz E - Last Filed: 06/10/17 18:13> Assessment and Plan - Time spent with patient Time spent with patient: Less than 30 minutes (1) Dyspnea Status: Acute Assessment and plan: See plan of care listed below. Current Visit: Yes (2) Bronchospasm Status: Acute Assessment and plan: See plan of care listed below. Current Visit: Yes (3) Noncompliance Status: Chronic Assessment and plan: See plan of care listed below. Current Visit: No (4) CAD (coronary artery disease) Status: Chronic Assessment and plan: See plan of care listed below. Current Visit: No (5) Dyslipidemia Status: Chronic Assessment and plan: See plan of care listed below. Current Visit: No (6) Hypertension Status: Chronic Assessment and plan: See plan of care listed below. Current Visit: No (7) Ischemic cardiomyopathy Status: Chronic Assessment and plan: See plan of care listed below. Current Visit: No (8) S/P CABG (coronary artery bypass graft) Status: Chronic Assessment and plan: See plan of care listed below. Current Visit: No (9) Tobacco use Status: Chronic Assessment and plan: See plan of care listed below. Current Visit: No (10) Acute exacerbation of chronic obstructive airways disease Status: Acute Assessment and plan: See plan of care listed below. Current Visit: Yes (11) Claudication Status: Acute Assessment and plan: See plan of care listed below. Current Visit: Yes Cardiology - PN: Subj Interval history: Cosmetic Assembler: Dr. Mckinnon SUMMARY: Mr. Nick, 56 year old WM with a past history of CAD with stents, CABG , HTN, chronic tobaccoism, and noncompliance. Also has known ischemic cardiomyopathy, EF 20-25% for medical management. Recent acute anterolateral STEMI with bare metal stent to OM1 (due to past noncompliance) and discharged home on 05/28. Now admitted with shortness of breath and leg cramping. Acute [place] ruled out upon arrival. Echo: EF 20-25%, anteroapical and inferior basal akinesis, chronic apical thrombus, mild diastolic dysfunction, and pulmonary hypertension with PAP 45 mmHg EKG: SR with occ PAC/PVC, no ischemic changes from previous. 2016: Patient is lying flat on his back upon exam today on room air, breathing comfortably. He complains that he has not seen anyone to discuss his disability paperwork today and this seems to be his primary concern today. He reports he was supposed to have his second physical with the disability office today. I have personally spoken with our Entry Level Mechanical Engineer, Marcio, about Mr. Nick and we will assist in whatever capacity we are able. Mr. Nick also complains that he is told to eat healthy at home, yet we continuously bring him food that he doesn't think he should be eating. He is on a cardiac diet. Mr. Nick continues to complain of BLE pain with ambulation. He reports his breathing is only improved with breathing treatments and he does not feel as if he has improved significantly. He has smoked for over 37 years and only recently quit about 2 weeks ago. Will further discuss the results of Mr. Nick's arterial duplex study with Dr. Palomares and await additional recommendations. IMPRESSION/PLAN: 1. DYSPNEA: EDP was elevated elevated on recent discharge, he was not on diuretic. Severe systolic dysfunction, ischemic cardiomyopathy. The shortness of breath started, after he started Brilinta. Chest CT did not show PE or effusion. Exam does not suggest pericarditis. Breathing has been improving with PO diuretics and breathing treatments. 2. BRONCHOSPASM: His Brilinta was stopped and he was started on Plavix. He was also started on breathing treatments and reports his breathing improves after breathing treatments are administered. 3. NONCOMPLIANCE: Chronic. 4. CAD: Continue DAPT, beta georgette, CHRISTEN inhibitor, statin. 5. DYSLIPIDEMIA: Continue lipid lowering agent. 6. HYPERTENSION: Currently well controlled on current therapy. Will continue to monitor and adjust accordingly. 7. ISCHEMIC CARDIOMYOPATHY: With EF 20-25%. If his EF does not recover, he will be a candidate for ICD. 8. S/P CABG: Status post coronary artery bypass grafting 2 in September 2010 with CARROLL to LAD and SVG to diagonal per Dr. Tate. Post CABG in 2010, he was lost to follow-up after leaving the hospital AGAINST MEDICAL ADVICE. 9. TOBACCO ABUSE: Patient reports he quit on 05/28/17. 10. COPD EXACERBATION: He is receiving breathing treatments and O2 PRN. 11. CLAUDICATION: Arterial dopplers reveal RUDY 0.67 on the right and 0.60 on the left. Patient reports he is only able to walk for about 15 minutes before he has severe leg pain. Exam (Progress Note) - Constitutional Vitals: Period Temp Pulse Resp BP Sys/Jackson Pulse Ox Last 24 Hr 96.9 F-98.3 F 66-89 18-21 104-138/70-76 93-100 Exam: General appearance: Appears well. Pleasant and cooperative. Overweight, no acute distress. Head exam: Present: normal inspection, normocephalic, atraumatic. Absent: hematoma, laceration Eye exam: Present: EOMI. Absent: conjunctival injection, nystagmus, periorbital swelling, scleral icterus, laceration to eyelids, jaundice Pupils: Present: PERRL. Absent: constricted, dilated, fixed, irregular, unequal ENT exam: Present: normal exam, normal external ear exam, mucous membranes moist. Neck exam: Present: normal inspection, midline trachea. Absent: masses, lymphadenopathy, tenderness, thyromegaly, carotid bruit Respiratory exam: Present: clear to auscultation bilaterally. Absent: accessory muscle use, chest wall tenderness. Cardiovascular exam: Present: regular rate and rhythm. Absent: gallop, JVD, rubs, murmur GI/Abdominal exam: Present: normal bowel sounds, soft. Absent: distended, firm , hernia, mass, tenderness. Extremities exam: Present: No Clubbing, No Cyanosis, Upper Extr. Pulses 2+, Lower Extr. Pulses 2+, No edema. Capillary refill less than 3 seconds. Musculoskeletal: Present: No Fluid Collection, No Pain, Normal Range of Motion Back exam: Present: normal inspection. Absent: muscle spasm, vertebral tenderness Neurological exam: Present: awake, alert, oriented X3, Moves all extremities well without hemiparesis or paralysis. Grossly intact without resting or essential tremor Psychiatric exam: Present: normal affect, normal mood Skin exam: Present: normal color, warm, dry, intact. Absent: cyanosis, diaphoretic, rash, urticaria Result/EKG - Labs CBC & BMP: 06/10/17 04:22 06/10/17 04:22 Lab Results: I have reviewed the past 24 hour labs Labs: Laboratory Results - last 24 hr 06/10/17 06/10/17 04:22 04:22 WBC 7.9 RBC 4.80 Hgb 15.0 Hct 44.7 MCV 93.1 MCH 31 MCHC 33.6 RDW 13.1 Plt Count 297 MPV 10.3 Neut % (Auto) 56.7 Lymph % (Auto) 29.6 [place] % (Auto) 6.1 Eos % (Auto) 5.1 Baso % (Auto) 1.1 H Neut # (Auto) 4.5 Lymph # (Auto) 2.3 [place] # (Auto) 0.5 Eos # (Auto) 0.4 Baso # (Auto) 0.1 Immature Gran % 1.4 Nucleated RBC % 0.0 Immature Gran # 0.11 Nucleated RBCs # 0.00 Immature Plt Fraction 0.0 Sodium 137 Potassium 3.9 Chloride 102 Carbon Dioxide 26 Anion Gap 12.9 BUN 22 H Creatinine 1.00 GFR Calculation 99 BUN/Creatinine Ratio 22.00 H Glucose 86 Calculated Osmolality 274.8 Calcium 8.6 Magnesium 2.4 - EKG EKG results: interpreted by me, sinus rhythm Specialty Discharge - Follow Up or Referrals <Tyrese Palomares - Last Filed: 06/10/17 19:28> Exam (Progress Note) - Constitutional Vitals: Period Temp Pulse Resp BP Sys/Jackson Pulse Ox Last 24 Hr 96.9 F-98.3 F 66-89 18-20 104-138/70-76 93-100 Result/EKG - Labs CBC & BMP: 06/10/17 04:22 06/10/17 04:22 Labs: Laboratory Results - last 24 hr 06/10/17 06/10/17 04:22 04:22 WBC 7.9 RBC 4.80 Hgb 15.0 Hct 44.7 MCV 93.1 MCH 31 MCHC 33.6 RDW 13.1 Plt Count 297 MPV 10.3 Neut % (Auto) 56.7 Lymph % (Auto) 29.6 [place] % (Auto) 6.1 Eos % (Auto) 5.1 Baso % (Auto) 1.1 H Neut # (Auto) 4.5 Lymph # (Auto) 2.3 [place] # (Auto) 0.5 Eos # (Auto) 0.4 Baso # (Auto) 0.1 Immature Gran % 1.4 Nucleated RBC % 0.0 Immature Gran # 0.11 Nucleated RBCs # 0.00 Immature Plt Fraction 0.0 Sodium 137 Potassium 3.9 Chloride 102 Carbon Dioxide 26 Anion Gap 12.9 BUN 22 H Creatinine 1.00 GFR Calculation 99 BUN/Creatinine Ratio 22.00 H Glucose 86 Calculated Osmolality 274.8 Calcium 8.6 Magnesium 2.4
[2017-06-10] MEDS: ROSUVASTATIN 20 MG TABLET PO SCH (21:40)
[2017-06-11] MEDS: ALBUTEROL/IPRATROPIUM 3 ML NEB RESP TX SCH ×4 (00:53→20:09)
[2017-06-11] MEDS: FUROSEMIDE 40 MG TABLET PO SCH ×2 (10:29→16:42)
[2017-06-11] MEDS: CARVEDILOL 6.25 MG TABLET PO SCH ×2 (10:29→16:42)
[2017-06-11] MEDS: ASPIRIN EC 81 MG TABLET PO SCH (10:29)
[2017-06-11] MEDS: SPIRONOLACTONE 25 MG TABLET PO SCH (10:29)
[2017-06-11] MEDS: ISOSORBIDE MONONITRATE 30 MG TABLET PO SCH (10:29)
[2017-06-11] MEDS: LISINOPRIL 2.5 MG TABLET PO SCH (10:29)
[2017-06-11] MEDS: PANTOPRAZOLE 40 MG TABLET PO SCH (10:30)
--- NOTE | 2017-06-11 16:50 | Cardiology Progress Note ---
I, Elena Croft RN, am scribing for, and in the presence of, Tyrese Palomares MD 16:49. Assessment and Plan - Time spent with patient Time spent with patient: Greater than 30 minutes (1) Dyspnea Status: Acute Assessment and plan: 1. Severe ischemic cardiomyopathy (EF 20-25%) admitted with left-sided heart failure symptoms as his complaints of worsening chronic left greater than right lower extremity claudication. 2. Status post recent stenting (2 weeks ago) of severe proximal circumflex disease without improvement in symptoms (complaints of worsening dyspnea on exertion and orthopnea since that time); he has mid LAD in-stent occlusion, proximal RCA occlusion with one patent bypass graft to diagonal. Check viability scan to see if he is a candidate for revascularization (pending). I suspect his apex is scar given and is akinetic and had a chronic apical thrombus noted there previously. 3. Improving clinically with less dyspnea and a bit less fatigue 4. Slightly increase CHRISTEN inhibitor to 5 mg twice daily. 5. Continue more aggressive statin Crestor 40 mg daily given the diffuse nature of his coronary artery disease per 6. We discussed his absolute need to not restart smoking (reports he quit 2 weeks ago) 7. Bilateral limiting claudication with RUDY 0.6 the left and 0.67 on the right and right SFA occlusion noted incidentally on last heart cath per 8. Status post CABG in 2010 with only vein graft to diagonal noted on recent heart catheterization (CARROLL inserts into the chest wall) Current Visit: Yes (2) Acute exacerbation of chronic obstructive airways disease Status: Acute Assessment and plan: SEE PLAN OF CARE LISTED ABOVE. Current Visit: Yes (3) Bronchospasm Status: Acute Assessment and plan: SEE PLAN OF CARE LISTED ABOVE. Current Visit: Yes (4) Noncompliance Status: Chronic Assessment and plan: SEE PLAN OF CARE LISTED ABOVE. Current Visit: No (5) CAD (coronary artery disease) Status: Chronic Assessment and plan: SEE PLAN OF CARE LISTED ABOVE. Current Visit: No (6) Dyslipidemia Status: Chronic Assessment and plan: SEE PLAN OF CARE LISTED ABOVE. Current Visit: No (7) Hypertension Status: Chronic Assessment and plan: SEE PLAN OF CARE LISTED ABOVE. Current Visit: No (8) Ischemic cardiomyopathy Status: Chronic Assessment and plan: SEE PLAN OF CARE LISTED ABOVE. Current Visit: No (9) S/P CABG (coronary artery bypass graft) Status: Chronic Assessment and plan: SEE PLAN OF CARE LISTED ABOVE. Current Visit: No (10) Tobacco use Status: Chronic Assessment and plan: SEE PLAN OF CARE LISTED ABOVE. Current Visit: No (11) Claudication Status: Acute Assessment and plan: SEE PLAN OF CARE LISTED ABOVE. Current Visit: Yes Cardiology - PN: Subj Interval history: RFID ENGINEER: DR. MORENO SUMMARY: Mr. Nick, 56 WM, PMHx CAD with previous stenting, CABG x 2 in September 2010 ( [place] BAND to LAD, SVG to diagonal). He left AMA in 2010 post CABG, and returned most recently with acute anterolateral ST elevation NV with bare metal stent to OM1 ( due to previous noncompliance) and discharged home on 05/28 with appropriate medications. Presently admitted to telemetry unit on 06/06 with shortness of breath and leg cramping. ACS ruled out immediately after admission. Echocardiogram with EF 20-25%, anteroapical and inferior basal akinesis, chronic apical thrombus, mild diastolic dysfunction, and pulm HTN with PAP [address] ruled out PE and effusion. Brilinta has been transitioned to Plavix without improvement of symptoms. Has been started on diuretic therapy and nebulizer treatments with improvement of dyspnea. He also has chronic bilateral lower extremity claudication, greater on left than right. On 06/10, arterial doppler study with RUDY 0.67 on right, 0.60 on left. Reports only be able to ambulate short distances for approximately 15 minutes before experiencing severe leg pain. 2016: Lying flat on back, resting comfortably in bed with no acute distress this afternoon. Denies chest pain. No shortness of breath at this time, stating, "It comes and goes." Afebrile. Sinus rhythm per tele monitor, HR 80s. SBP 100-115 mmHg. Appetite is good. Today, he is concerned that his shortness of breath is related to a past surgical procedure for peritonsilar abscess approximately 1 month prior to recent STEMI. Patient is for thallium viability study tomorrow to see if he is a candidate for revascularization. Labs reviewed and unremarkable. Exam (Progress Note) - Constitutional Vitals: Period Temp Pulse Resp BP Sys/Jackson Pulse Ox Last 24 Hr 96.0 F-97.9 F 62-95 14-20 104-111/64-81 90-98 Exam: General appearance: Appears well. Pleasant and cooperative. Overweight, no acute distress. Head exam: Present: normal inspection, normocephalic, atraumatic. Absent: hematoma, laceration Eye exam: Present: EOMI. Absent: conjunctival injection, nystagmus, periorbital swelling, scleral icterus, laceration to eyelids, jaundice Pupils: Present: PERRL. Absent: constricted, dilated, fixed, irregular, unequal ENT exam: Present: normal exam, normal external ear exam, mucous membranes moist. Neck exam: Present: normal inspection, midline trachea. Absent: masses, lymphadenopathy, tenderness, thyromegaly, carotid bruit Respiratory exam: Present: clear to auscultation bilaterally. Absent: accessory muscle use, chest wall tenderness, rhonchi, wheeze Cardiovascular exam: Present: regular rate and rhythm. Absent: gallop, JVD, rubs, murmur, tachycardia, bradycardia GI/Abdominal exam: Present: normal bowel sounds, soft. Absent: distended, firm , hernia, mass, tenderness. Extremities exam: Present: No Clubbing, No Cyanosis, Upper Extr. Pulses 2+, Weak but palpable bilateral lower extremity pulses. No edema. Normal capillary refill. Musculoskeletal: Present: No Fluid Collection, No Pain, Normal Range of Motion Back exam: Present: normal inspection. Absent: muscle spasm, vertebral tenderness Neurological exam: Present: awake, alert, oriented X3, Moves all extremities well without hemiparesis or paralysis. Grossly intact without resting or essential tremor Psychiatric exam: Present: normal affect, normal mood. He is not anxious or depressed. Skin exam: Present: normal color, warm, dry, intact. Absent: cyanosis, diaphoretic, rash, urticaria, suspicious lesion Result/EKG - Labs CBC & BMP: 06/10/17 04:22 06/10/17 04:22 Lab Results: I have reviewed the past 24 hour labs - EKG EKG results: interpreted by me, no acute changes EKG shows: sinus rhythm (Occasional PAC/PVC) Specialty Discharge - Follow Up or Referrals Vikram, Tyrese Palomares MD, personally performed the services described in this documentation, ascribed by Elena Croft RN in my presence, and it is both accurate and complete [phone] .
[2017-06-11] MEDS: LISINOPRIL 5 MG TABLET PO SCH (22:14)
[2017-06-11] MEDS: ROSUVASTATIN 20 MG TABLET PO SCH (22:14)
[2017-06-12] MEDS: ALBUTEROL/IPRATROPIUM 3 ML NEB RESP TX SCH ×4 (00:14→19:54)
[2017-06-12] MEDS: FUROSEMIDE 40 MG TABLET PO SCH ×2 (09:35→17:15)
[2017-06-12] MEDS: ASPIRIN EC 81 MG TABLET PO SCH (09:35)
[2017-06-12] MEDS: LISINOPRIL 5 MG TABLET PO SCH ×2 (09:35→21:40)
[2017-06-12] MEDS: ISOSORBIDE MONONITRATE 30 MG TABLET PO SCH (09:35)
[2017-06-12] MEDS: SPIRONOLACTONE 25 MG TABLET PO SCH (09:35)
[2017-06-12] MEDS: PANTOPRAZOLE 40 MG TABLET PO SCH (09:35)
[2017-06-12] MEDS: CARVEDILOL 6.25 MG TABLET PO SCH (09:35)
--- NOTE | 2017-06-12 16:29 | Cardiology Progress Note ---
I, Elena Croft RN, am scribing for, and in the presence of, Tyrese Palomares MD 16:27. Assessment and Plan - Time spent with patient Time spent with patient: Greater than 30 minutes (1) Dyspnea Status: Acute Assessment and plan: Mr. Nick, 56 year old WM with a past history of CAD with stents, CABG, HTN, chronic tobaccoism, and noncompliance. Also has known ischemic cardiomyopathy, EF 20-25% for medical management. Recent acute anterolateral STEMI with bare metal stent to OM1 (due to past noncompliance) and discharged home on 05/28. Now admitted with shortness of breath and leg cramping. Acute ND ruled out upon arrival. Echo: EF 20-25%, anteroapical and inferior basal akinesis, chronic apical thrombus, mild diastolic dysfunction, and pulmonary hypertension with PAP 45 mmHg June 11, 2017: 1. Severe ischemic cardiomyopathy (EF 20-25%) admitted with left-sided heart failure symptoms as his complaints of worsening chronic left greater than right lower extremity claudication. 2. Status post recent stenting (2 weeks ago) of severe proximal circumflex disease without improvement in symptoms (complaints of worsening dyspnea on exertion and orthopnea since that time); he has mid LAD in-stent occlusion, proximal RCA occlusion with one patent bypass graft to diagonal. Check viability scan to see if he is a candidate for revascularization (pending). I suspect his apex is scar given and is akinetic and had a chronic apical thrombus noted there previously. 3. Improving clinically with less dyspnea and a bit less fatigue 4. Slightly increase CHRISTEN inhibitor to 5 mg twice daily. 5. Continue more aggressive statin Crestor 40 mg daily given the diffuse nature of his coronary artery disease per 6. We discussed his absolute need to not restart smoking (reports he quit 2 weeks ago) 7. Bilateral limiting claudication with RUDY 0.6 the left and 0.67 on the right and right SFA occlusion noted incidentally on last heart cath per 8. Status post CABG in 2010 with only vein graft to diagonal noted on recent heart catheterization (CARROLL inserts into the chest wall) 2016: 1. Mr. Nick is continuing to improve clinically and is interested in ambulating on the wards, which I believe will be helpful will need to be careful to get up slowly and avoid falls. 2. Viability study will be completed tomorrow, after which time we can decide if he would benefit from revascularization or not. 3. He is on excellent medical therapy would increase Coreg to 12.5 mg twice daily Current Visit: Yes (2) Acute exacerbation of chronic obstructive airways disease Status: Acute Assessment and plan: SEE PLAN OF CARE LISTED ABOVE. Current Visit: Yes (3) Bronchospasm Status: Acute Assessment and plan: SEE PLAN OF CARE LISTED ABOVE. Current Visit: Yes (4) Noncompliance Status: Chronic Assessment and plan: SEE PLAN OF CARE LISTED ABOVE. Current Visit: No (5) CAD (coronary artery disease) Status: Chronic Assessment and plan: SEE PLAN OF CARE LISTED ABOVE. Current Visit: No (6) Dyslipidemia Status: Chronic Assessment and plan: SEE PLAN OF CARE LISTED ABOVE. Current Visit: No (7) Hypertension Status: Chronic Assessment and plan: SEE PLAN OF CARE LISTED ABOVE. Current Visit: No (8) Ischemic cardiomyopathy Status: Chronic Assessment and plan: SEE PLAN OF CARE LISTED ABOVE. Current Visit: No (9) S/P CABG (coronary artery bypass graft) Status: Chronic Assessment and plan: SEE PLAN OF CARE LISTED ABOVE. Current Visit: No (10) Tobacco use Status: Chronic Assessment and plan: SEE PLAN OF CARE LISTED ABOVE. Current Visit: No (11) Claudication Status: Acute Assessment and plan: SEE PLAN OF CARE LISTED ABOVE. Current Visit: Yes Cardiology - PN: Subj Interval history: [employer]: DR. MORENO SUMMARY: Mr. Nick, 56 WM, PMHx CAD with previous stenting, CABG x 2 in September 2010 ( KIVALINA to LAD, SVG to diagonal). He left AMA in 2010 post CABG, and returned most recently with acute anterolateral ST elevation ND with bare metal stent to 1 ( due to previous noncompliance) and discharged home on 05/28 with appropriate medications. Presently admitted to telemetry unit on 06/06 with shortness of breath and leg cramping. ACS ruled out immediately after admission. Echocardiogram with EF 20-25%, anteroapical and inferior basal akinesis, chronic apical thrombus, mild diastolic dysfunction, and pulm HTN with PAP [address] ruled out PE and effusion. Brilinta has been transitioned to Plavix without improvement of symptoms. Has been started on diuretic therapy and nebulizer treatments with improvement of dyspnea. He also has chronic bilateral lower extremity claudication, greater on left than right. On 06/10, arterial doppler study with RUDY 0.67 on right, 0.60 on left. Reports only be able to ambulate short distances for approximately 15 minutes before experiencing severe leg pain. 2016: No acute changes or new findings in patient's hemodynamic status overnight. No chest discomfort. No significant dyspnea. Reports some intermittent shortness of breath. Supplemental oxygen in use., BP 120/65. Sinus rhythm, HR 80s without ectopy or dysrhythmia. Thallium viability scan started this AM. Exam (Progress Note) - Constitutional Vitals: Period Temp Pulse Resp BP Sys/Jackson Pulse Ox Last 24 Hr 95.3 F-98.1 F 69-90 16-20 91-121/62-78 93-99 Exam: General appearance: Appears well. Pleasant and cooperative. Overweight, no acute distress. Head exam: Present: normal inspection, normocephalic, atraumatic. Absent: hematoma, laceration Eye exam: Present: EOMI. Absent: conjunctival injection, nystagmus, periorbital swelling, scleral icterus, laceration to eyelids, jaundice Pupils: Present: PERRL. Absent: constricted, dilated, fixed, irregular, unequal ENT exam: Present: normal exam, normal external ear exam, mucous membranes moist. Neck exam: Present: normal inspection, midline trachea. Absent: masses, lymphadenopathy, tenderness, thyromegaly, carotid bruit Respiratory exam: Present: clear to auscultation bilaterally. Absent: accessory muscle use, chest wall tenderness, rhonchi, wheeze Cardiovascular exam: Present: regular rate and rhythm. Absent: gallop, JVD, rubs, murmur, tachycardia, bradycardia GI/Abdominal exam: Present: normal bowel sounds, soft. Absent: distended, firm , hernia, mass, tenderness. Extremities exam: Present: No Clubbing, No Cyanosis, Upper Extr. Pulses 2+, Weak but palpable bilateral lower extremity pulses. No edema. Normal capillary refill. Musculoskeletal: Present: No Fluid Collection, No Pain, Normal Range of Motion Back exam: Present: normal inspection. Absent: muscle spasm, vertebral tenderness Neurological exam: Present: awake, alert, oriented X3, Moves all extremities well without hemiparesis or paralysis. Grossly intact without resting or essential tremor Psychiatric exam: Present: normal affect, normal mood. He is not anxious or depressed. Skin exam: Present: normal color, warm, dry, intact. Absent: cyanosis, diaphoretic, rash, urticaria, suspicious lesion Result/EKG - Labs CBC & BMP: 06/10/17 04:22 06/10/17 04:22 Lab Results: I have reviewed the past 24 hour labs - EKG EKG results: interpreted by me, no acute changes EKG shows: sinus rhythm Specialty Discharge - Follow Up or Referrals I, Tyrese Palomares MD, personally performed the services described in this documentation, ascribed by Elena Croft RN in my presence, and it is both accurate and complete [id number] .
[2017-06-12] MEDS: CARVEDILOL 12.5 MG TABLET PO SCH (21:40)
[2017-06-12] MEDS: ROSUVASTATIN 20 MG TABLET PO SCH (21:40)
[2017-06-13] MEDS: ALBUTEROL/IPRATROPIUM 3 ML NEB RESP TX SCH ×3 (00:15→13:55)
[2017-06-13] MEDS: LISINOPRIL 5 MG TABLET PO SCH (08:42)
[2017-06-13] MEDS: FUROSEMIDE 40 MG TABLET PO SCH ×2 (08:42→15:10)
[2017-06-13] MEDS: PANTOPRAZOLE 40 MG TABLET PO SCH (08:42)
[2017-06-13] MEDS: SPIRONOLACTONE 25 MG TABLET PO SCH (08:42)
[2017-06-13] MEDS: ISOSORBIDE MONONITRATE 30 MG TABLET PO SCH (08:42)
[2017-06-13] MEDS: CARVEDILOL 12.5 MG TABLET PO SCH (08:42)
[2017-06-13] MEDS: ASPIRIN EC 81 MG TABLET PO SCH (08:42)
[2017-06-13] MEDS ORDERED: CLOPIDOGREL 75 MG TABLET PO SCH (15:30)
--- NOTE | 2017-06-13 16:10 | Discharge Summary ---
Lang Sue Vanessa, RN, am scribing for, and in the presence of, Tyrese Palomares MD 16:10. Hospital Course - Hospital Course Hospital Course: [employer]: DR. MCKINNON Mr. Nick, 56 WM, PMHx hypertension, chronic tobaccoism, and CAD with previous stenting. CABG x 2 in September 2010 (CARROLL inserts into chest wall, SVG to diagonal). He left AMA in 2010 post CABG, and returned most recently with acute anterolateral ST elevation ND with bare metal stent to OM1 (due to previous noncompliance) and discharged home on 05/28 with appropriate medications. Presently admitted to telemetry unit on 06/06 with shortness of breath and leg cramping. ACS ruled out immediately after admission. Echocardiogram with EF 20- 25%, anteroapical and inferior basal akinesis, chronic apical thrombus, mild diastolic dysfunction, and pulm HTN with PAP [address] ruled out PE and effusion. Brilinta transitioned to Plavix with some improvement of symptoms. He also has chronic bilateral lower extremity claudication, greater on left than right. On 06/10, arterial doppler study with RUDY 0.67 on right, 0.60 on left. He has improved with addition of diuretics to medication regimen. Thallium viability scan performed to assess for candidacy for revascularization. Viability scan revealed no viability options, there are large areas of inferoapical scarring with no improvement of images taken 1 hour and 24 hours apart. Patient continues to feel well, and he is on excellent medical therapy. He reported at the beginning of the admission that he had quit smoking 2 weeks ago after recent discharge home. It has been discussed with him the absolute need to not restart smoking. He has not required supplemental oxygen in over 24 hours, and oxygen saturation levels are stable. Vital signs are stable. At this time, it is felt that he has reached maximum hospital benefit. He is stable for discharge home this afternoon. He will be given follow-up appointment with Dr. Mckinnon in 2 weeks with EKG, CBC, BMP, magnesium level. Addendum: Mr. Ncik still has dyspnea after walking 20 yards or so, but is much better than admission. His viability study suggests that he would not benefit from revascularization of his mid LAD in-stent occlusion or his proximal RCA occlusion. We discussed at length the multiple days his need to not restart smoking. He has bilateral PAD with severe claudication left greater than right , which should be treated medically. We discussed his need to gradually increasing his walking the 2 3 short walks per day and gradually increase it, to avoid heavy lifting. - Time spent with patient Time with patient DS: Greater than 30 minutes Diagnosis - Discharge Diagnosis (1) Dyspnea Status: Ruled-out (2) Acute exacerbation of chronic obstructive airways disease Status: Resolved (3) Bronchospasm Status: Resolved (4) Noncompliance Status: Chronic (5) CAD (coronary artery disease) Status: Chronic (6) Dyslipidemia Status: Chronic (7) Hypertension Status: Chronic (8) Ischemic cardiomyopathy Status: Chronic (9) S/P CABG (coronary artery bypass graft) Status: Chronic (10) Tobacco use Status: Chronic (11) Claudication Status: Acute Specialty Discharge - Follow Up or Referrals Follow up with: Shamir Mckinnon MD [Physician] - 2 Weeks (Follow up with Dr. Mckinnon at [facility] clinic in 2 weeks with EKG, CBC, BMP, Mg+. ) Discharge Plan - Discharge Data Disposition: Disch To Home/Self Care Condition at Discharge: Stable Discharge Diet: advance to your usual diet, heart healthy, low fat, low cholesterol Activity: resume usual activities as tolerated Hygiene: no restrictions Weight Bearing at Discharge: full weight bearing, weight bear as tolerated Driving: no restrictions Contact your physician if you experience:: fever over 101, Difficulty voiding, Redness or swelling, Nausea/Vomiting, Shortness of breath, Bleeding, pain uncontrolled by pain medications - Discharge Medications New Carvedilol [Coreg] 12.5 mg PO BID #60 tablet Clopidogrel [Plavix] 75 mg PO DAILY #30 tablet Furosemide Tab [Lasix Tab] 40 mg PO BID DIURETIC #60 tablet Lisinopril [Prinivil] 5 mg PO BID #60 tablet Rosuvastatin [Crestor] 40 mg PO BEDTIME #30 tablet Spironolactone [Aldactone] 25 mg PO DAILY #30 tablet Isosorbide Mononitrate [Imdur] 30 mg PO DAILY #30 tablet Continue Aspirin EC Tab 81 mg PO DAILY #30 tablet Discontinued Carvedilol [Coreg] 3.125 mg PO BID W/MEALS #60 tablet Ticagrelor [Brilinta] 90 mg PO BID #60 tablet Atorvastatin [Lipitor] 20 mg PO BEDTIME #30 tablet - Follow Up or Referral Follow Up: Shamir Mckinnon MD [Physician] - 2 Weeks (Follow up with Dr. Mckinnon at [facility] clinic in 2 weeks with EKG, CBC, BMP, Mg+. ) - Forms/Instructions Instructions: Coronary Artery Disease (GEN), How to Stop Smoking (GEN), Heart Healthy Diet (GEN), Chronic Obstructive Pulmonary Disease (GEN) Exam - Constitutional Vitals: Period Temp Pulse Resp BP Sys/Jackson Pulse Ox Last 24 Hr 97.1 F-98.5 F 67-85 16-20 99-111/64-73 91-98 Exam: General appearance: Pleasant and cooperative. Overweight, no acute distress. Appears comfortable. Head exam: Present: normal inspection, normocephalic, atraumatic. Absent: hematoma, laceration Eye exam: Present: EOMI. Absent: conjunctival injection, nystagmus, periorbital swelling, scleral icterus, laceration to eyelids, jaundice Pupils: Present: PERRL. Absent: constricted, dilated, fixed, irregular, unequal. ENT exam: Present: normal exam, normal external ear exam, mucous membranes moist. Neck exam: Present: normal inspection, midline trachea, left carotid bruit. Absent: masses, lymphadenopathy, tenderness, thyromegaly Respiratory exam: Present: clear to auscultation bilaterally. Absent: accessory muscle use, chest wall tenderness, rhonchi, wheeze Cardiovascular exam: Present: regular rate and rhythm. Absent: gallop, JVD, rubs, murmur, tachycardia, bradycardia GI/Abdominal exam: Present: normal bowel sounds, soft. Absent: distended, firm , hernia, mass, tenderness. Extremities exam: Present: No Clubbing, No Cyanosis, Upper Extr. Pulses 2+, Weak but palpable bilateral lower extremity pulses. No edema. Normal capillary refill. Musculoskeletal: Present: No Fluid Collection, No Pain, Normal Range of Motion Back exam: Present: normal inspection. Absent: muscle spasm, vertebral tenderness Neurological exam: Present: awake, alert, oriented X3, Moves all extremities well without hemiparesis or paralysis. Grossly intact without resting or essential tremor Psychiatric exam: Present: normal affect, normal mood. He is not anxious or depressed. Skin exam: Present: normal color, warm, dry, intact. Absent: cyanosis, diaphoretic, rash, urticaria, suspicious lesion Discharge Results Procedures and tests throughout hospitalization: Pending Orders 06/12/17 04:00 NM terese spec thallium viability Routine - Imaging and Cardiology Cardiology Procedure: image reviewed by me (Thallium whole body SPECT scan) Procedure: Chest x-ray: image reviewed by me, report reviewed by me, CT - chest : image reviewed by me, report reviewed by me DS: Provider Attending physician on admission: Jose Palomares MD Consults: 06/06/17 19:32 Consult to Cardiac Rehabilitation [CONS] Routine Reason for Cardiac Rehabilitation: Risk Factor Modification Other Consult Comment: Evaluate and recommend Discharging clinician: Jose Palomares MD Expected date of discharge: 06/13/17 Jelani Sue Randall Scott, MD, personally performed the services described in this documentation, ascribed by Elena Croft RN in my presence, and it is both accurate and complete [id number] .
[2017-06-13 17:06] VITALS: BP 102/69
--- NOTE | 2017-06-13 19:23 | Nuclear Medicine Report ---
DATE: 06/13/2017 MYOCARDIAL VIABILITY STUDY BRIEF CLINICAL SUMMARY: Mr. Nick is a 56-year-old with known coronary artery disease and previous AL s, who presented heart failure with occluded middle AV stent and proximal RCA occlusion status post r ecent circumflexed stenting (proximal) with patent graft to diagonal, being assessed for viability to see if bypass surgery or complex percutaneous intervention is appropriate. DESCRIPTION OF PROCEDURE: The patient was injected with 4 mCi of Thallium-201, it came back sequenti ally at 1 hour, 4 hours, 24 hours for myocardial scan. Images were processed in sestamibi process. Thallium-201 viability study: Results: The patient has a large, severe, completely nonviable area i nvolving the apex. There was also a large inferior wall abnormality with only mild viability just ov er the entire inferior wall, has only mild uptake throughout. The uptake throughout myocardium is un changed between 1 hour, 4-four and 24-hour images. The lateral wall has normal uptake throughout. The gated images show severely reduced LV systolic function with estimated ejection fraction of 23%. Wall motion analysis suggests hypokinesis at the base, but akinesis in a large area of the apex. IMPRESSION: 1. LARGE AREA OF SEVERE APICAL SCARRING. 2. LARGE AREA OF MODERATE TO SEVERE INFERIOR SCARRING. 3. NO IMPROVEMENT IN UPTAKE THROUGHOUT THE STUDY SUGGESTS NONVIABLE TISSUE; SCAR IN THESE DISTRIBUT IONS. 4. SEVERELY REDUCED LEFT VENTRICULAR SYSTOLIC FUNCTION WITH EJECTION FRACTION TO BE 23%. 5. SEVERE AREA OF APICAL AKINESIS IS NOTED. RECOMMENDATIONS AND DISCUSSION: Given these findings, it appears that revascularization attempts wou ld be of a little benefit for Mr. Nick. Fortunately, he is improving with medical therapy. We will continue this. Procedure performed and interpreted at [facility] Department of Radiology.
== END 2017-06-13 18:15 | disposition home or self-care (01) | DRG 190 ==
LOC: EDUNIT# → EDBD → N.ED 16:11 → N.EDINP 16:11 → OBSVTOIN 16:35 → N.EDINP 18:43 → N.TELEN 18:50
PROVIDERS: ADMIT Internal Medicine Interventional Cardiology; ATTEND Internal Medicine Interventional Cardiology

== ENCOUNTER 2017-11-17 03:07 | Inpatient (IN) ==
[2017-11-17] MEDS ORDERED: INFLUENZA VIRUS VACCINE 0.5 ML SYRINGE IM ONE (05:48)
[2017-11-17] MEDS ORDERED: ACETAMINOPHEN 325 MG TABLET PO PRN (05:48)
[2017-11-17] MEDS ORDERED: ONDANSETRON 4 MG/2 ML VIAL IV PRN (05:48)
[2017-11-17] MEDS ORDERED: FUROSEMIDE 40 MG/4 ML VIAL IV STA (05:52)
[2017-11-17] MEDS ORDERED: ASPIRIN CHEW 81 MG TABLET PO ONE (06:00)
[2017-11-17] MEDS ORDERED: ALBUTEROL/IPRATROPIUM 3 ML NEB RESP TX PRN (06:33)
[2017-11-17] MEDS ORDERED: NITROGLYCERIN SL 0.4 MG TABLET SL PRN (08:22)
[2017-11-17 08:47] LABS: Basophils # 0.1 10*3/uL (0.0-0.2); Basophils % 0.6 % (0.0-0.8); Eosinophils # 0.3 10*3/uL (0.0-0.87); Eosinophils % 3.8 % (0.00-10.9); Hematocrit 42.1 VOL% (42.0-52.0); Hemoglobin 13.5 GM/DL (14.0-18.0); Immature Granulocytes % 1.1 %; Immature Granulocytes Absolute 0.09 #; Lymphocytes # 2.2 10*3/uL (1.4-4.0); Lymphocytes % 25.4 % (21.2-54.2); Mean Corpuscular HGB Conc 32.1 GM/DL (32-36); Mean Corpuscular Hemoglobin 30 PG (27-34); Mean Platelet Volume 10.6 FL (9.6-12.0); Monocytes # 0.4 10*3/uL (0.11-0.8); Monocytes % 4.8 % (1.7-12.7); Neutrophils # 5.5 10*3/uL (1.4-7.4); Neutrophils % 64.3 % (38.7-73.9); Platelet Count 260 T/CUMM (130-400); Red Blood Count 4.48 MC/CUMM (3.8-5.5); Red Cell Distribution Width 13.6 % (9.3-17.3); White Blood Count 8.5 T/CUMM (4-12)
[2017-11-17 09:13] LABS: Band Neutrophils 1 % (0-10); Eosinophils 2 % (0-10); Lymphocytes 21 % (20-55); Segmented Neutrophils 68 % (50-85); Total Cells Counted 100
[2017-11-17] MEDS: CARVEDILOL 6.25 MG TABLET PO SCH ×2 (09:13→22:49)
[2017-11-17] MEDS: PANTOPRAZOLE 40 MG TABLET PO SCH (09:13)
[2017-11-17] MEDS: CLOPIDOGREL 75 MG TABLET PO SCH (09:13)
[2017-11-17 09:14] LABS: Giant Platelets Few; Hypochromasia 1+; Platelet Estimate Adequate
[2017-11-17] MEDS: LISINOPRIL 5 MG TABLET PO SCH (09:14)
[2017-11-17] MEDS: ASPIRIN EC 81 MG TABLET PO SCH (09:14)
[2017-11-17] MEDS: ENOXAPARIN 40 MG/0.4 ML SYRINGE SUBCUT SCH (09:17)
[2017-11-17 09:29] LABS: Albumin 3.3 G/DL (3.4-5.0); Bilirubin,Total 0.5 MG/DL (0.2-1.0); Calcium 8.6 MG/DL (8.5-10.1); Osmolality,Calculated 282.4 MOS/KG (273-304); Potassium 3.9 MMOL/L (3.5-5.1); Total Protein 7.6 G/DL (6.4-8.3)
[2017-11-17 09:30] LABS: Troponin I Only 0.608 NG/ML (0.00-0.045)
[2017-11-17] MEDS: FUROSEMIDE 20 MG/2 ML VIAL IV SCH (18:21)
[2017-11-17] MEDS: ALBUTEROL/IPRATROPIUM 3 ML NEB RESP TX SCH (20:04)
[2017-11-17] MEDS: SIMVASTATIN 20 MG TABLET PO SCH (22:49)
[2017-11-18] MEDS: ALBUTEROL/IPRATROPIUM 3 ML NEB RESP TX SCH ×4 (00:55→19:41)
[2017-11-18] MEDS: CARVEDILOL 6.25 MG TABLET PO SCH ×2 (09:30→21:18)
[2017-11-18] MEDS: LISINOPRIL 5 MG TABLET PO SCH (09:30)
[2017-11-18] MEDS: ASPIRIN EC 81 MG TABLET PO SCH (09:30)
[2017-11-18] MEDS: CLOPIDOGREL 75 MG TABLET PO SCH (09:30)
[2017-11-18] MEDS: PANTOPRAZOLE 40 MG TABLET PO SCH (09:30)
[2017-11-18] MEDS: ENOXAPARIN 40 MG/0.4 ML SYRINGE SUBCUT SCH (09:31)
[2017-11-18] MEDS: FUROSEMIDE 20 MG/2 ML VIAL IV SCH ×2 (09:55→17:20)
[2017-11-18] MEDS: methylPREDNISolone SOD SUC 40 MG/1 ML VIAL IV SCH (17:18)
[2017-11-18] MEDS: SIMVASTATIN 20 MG TABLET PO SCH (21:18)
[2017-11-19] MEDS: ALBUTEROL/IPRATROPIUM 3 ML NEB RESP TX SCH ×4 (01:43→19:30)
[2017-11-19] MEDS: methylPREDNISolone SOD SUC 40 MG/1 ML VIAL IV SCH ×3 (01:47→16:52)
[2017-11-19 04:05] LABS: Risk Ratio 5.43; VLDL CHOLESTEROL 21.8 MG/DL
[2017-11-19] MEDS: CLOPIDOGREL 75 MG TABLET PO SCH (08:20)
[2017-11-19] MEDS: LISINOPRIL 5 MG TABLET PO SCH (08:20)
[2017-11-19] MEDS: CARVEDILOL 6.25 MG TABLET PO SCH ×2 (08:20→21:28)
[2017-11-19] MEDS: ASPIRIN EC 81 MG TABLET PO SCH (08:20)
[2017-11-19] MEDS: ENOXAPARIN 40 MG/0.4 ML SYRINGE SUBCUT SCH (08:20)
[2017-11-19] MEDS: PANTOPRAZOLE 40 MG TABLET PO SCH (08:20)
[2017-11-19] MEDS: FUROSEMIDE 20 MG/2 ML VIAL IV SCH ×2 (09:19→16:51)
[2017-11-19] MEDS: SIMVASTATIN 20 MG TABLET PO SCH (21:28)
[2017-11-20] MEDS: ALBUTEROL/IPRATROPIUM 3 ML NEB RESP TX SCH ×4 (02:30→19:06)
[2017-11-20] MEDS: methylPREDNISolone SOD SUC 40 MG/1 ML VIAL IV SCH ×3 (02:37→17:58)
[2017-11-20 05:48] LABS: Basophils % 0.1 % (0.0-0.8); Hemoglobin 13.6 GM/DL (14.0-18.0); Immature Granulocytes % 1.1 %; Lymphocytes # 1.3 10*3/uL (1.4-4.0); Lymphocytes % 6.8 % (21.2-54.2); Mean Corpuscular Hemoglobin 31 PG (27-34); Mean Corpuscular Volume 91.5 FL (87-102); Mean Platelet Volume 10.9 FL (9.6-12.0); Monocytes # 0.4 10*3/uL (0.11-0.8); Monocytes % 1.9 % (1.7-12.7); Neutrophils # 16.9 10*3/uL (1.4-7.4); Neutrophils % 90.1 % (38.7-73.9); Platelet Count 311 T/CUMM (130-400); Red Blood Count 4.37 MC/CUMM (3.8-5.5); Red Cell Distribution Width 13.4 % (9.3-17.3); White Blood Count 18.7 T/CUMM (4-12)
[2017-11-20 06:18] LABS: Calcium 8.2 MG/DL (8.5-10.1); Osmolality,Calculated 280.8 MOS/KG (273-304); Potassium 4.3 MMOL/L (3.5-5.1)
[2017-11-20] MEDS: CLOPIDOGREL 75 MG TABLET PO SCH (08:59)
[2017-11-20] MEDS: LISINOPRIL 5 MG TABLET PO SCH (08:59)
[2017-11-20] MEDS: ASPIRIN EC 81 MG TABLET PO SCH (09:00)
[2017-11-20] MEDS: PANTOPRAZOLE 40 MG TABLET PO SCH (09:00)
[2017-11-20] MEDS: CARVEDILOL 6.25 MG TABLET PO SCH ×2 (09:00→22:02)
[2017-11-20] MEDS: ENOXAPARIN 40 MG/0.4 ML SYRINGE SUBCUT SCH (09:02)
[2017-11-20] MEDS: FUROSEMIDE 20 MG/2 ML VIAL IV SCH ×2 (10:04→16:50)
[2017-11-20 14:05] LABS: Cotinine 114 ng/mL (<3.0); Nicotine < 3.0 ng/mL (<3.0)
[2017-11-20] MEDS: guaiFENesin/DM ER 600-30 MG TABLET PO SCH ×2 (18:34→22:02)
[2017-11-20] MEDS: SIMVASTATIN 20 MG TABLET PO SCH (22:02)
[2017-11-21] MEDS: ALBUTEROL/IPRATROPIUM 3 ML NEB RESP TX SCH ×4 (00:34→19:39)
[2017-11-21] MEDS: methylPREDNISolone SOD SUC 40 MG/1 ML VIAL IV SCH ×2 (01:37→09:02)
[2017-11-21] MEDS: CLOPIDOGREL 75 MG TABLET PO SCH (08:58)
[2017-11-21] MEDS: LISINOPRIL 5 MG TABLET PO SCH ×2 (08:58→21:43)
[2017-11-21] MEDS: guaiFENesin/DM ER 600-30 MG TABLET PO SCH ×2 (08:58→21:42)
[2017-11-21] MEDS: ASPIRIN EC 81 MG TABLET PO SCH (08:59)
[2017-11-21] MEDS: PANTOPRAZOLE 40 MG TABLET PO SCH (08:59)
[2017-11-21] MEDS: CARVEDILOL 6.25 MG TABLET PO SCH ×2 (08:59→21:42)
[2017-11-21] MEDS: ENOXAPARIN 40 MG/0.4 ML SYRINGE SUBCUT SCH (09:01)
[2017-11-21] MEDS: FUROSEMIDE 20 MG/2 ML VIAL IV SCH (09:06)
[2017-11-21] MEDS ORDERED: predniSONE 20 MG TABLET PO SCH (10:30)
[2017-11-21] MEDS: SPIRONOLACTONE 25 MG TABLET PO SCH (11:10)
[2017-11-21] MEDS: FUROSEMIDE 40 MG/4 ML VIAL IV SCH (16:01)
[2017-11-21] MEDS: SIMVASTATIN 20 MG TABLET PO SCH (21:42)
[2017-11-22] MEDS: ALBUTEROL/IPRATROPIUM 3 ML NEB RESP TX SCH ×4 (00:46→19:23)
[2017-11-22 05:01] LABS: Basophils % 0.2 % (0.0-0.8); Hemoglobin 13.6 GM/DL (14.0-18.0); Immature Granulocytes % 1.8 %; Immature Granulocytes Absolute 0.27 #; Lymphocytes % 13.2 % (21.2-54.2); Mean Corpuscular HGB Conc 32.4 GM/DL (32-36); Mean Corpuscular Hemoglobin 30 PG (27-34); Monocytes # 1.1 10*3/uL (0.11-0.8); Neutrophils # 11.7 10*3/uL (1.4-7.4); Neutrophils % 77.8 % (38.7-73.9); Platelet Count 324 T/CUMM (130-400); Red Blood Count 4.47 MC/CUMM (3.8-5.5); Red Cell Distribution Width 13.4 % (9.3-17.3); White Blood Count 15.1 T/CUMM (4-12)
[2017-11-22 05:31] LABS: Calcium 7.9 MG/DL (8.5-10.1); Osmolality,Calculated 283.7 MOS/KG (273-304)
[2017-11-22] MEDS ORDERED: GLYCOPYRROLATE 0.4 MG/2 ML VIAL IM ONE (07:00)
[2017-11-22] MEDS ORDERED: PROMETHAZINE 25 MG/1 ML VIAL IM ONE (07:00)
[2017-11-22] MEDS ORDERED: MEPERIDINE 50 MG/1 ML VIAL IM ONE (07:00)
[2017-11-22] MEDS ORDERED: MIDAZOLAM 2 MG/2 ML VIAL ONE (07:04)
[2017-11-22] MEDS ORDERED: LIDOCAINE 1% 20 ML VIAL MISC INJ ONE (07:30)
[2017-11-22] MEDS ORDERED: MIDAZOLAM 2 MG/2 ML VIAL IV ONE (07:30)
[2017-11-22] MEDS ORDERED: LIDOCAINE 2% 20 ML VIAL RESP TX ONE (07:30)
[2017-11-22] MEDS ORDERED: LIDOCAINE 2% VISCOUS 100 ML BOTTLE SWISH/SPIT ONE (07:30)
[2017-11-22] MEDS: FUROSEMIDE 40 MG/4 ML VIAL IV SCH ×2 (12:58→17:32)
[2017-11-22] MEDS: PANTOPRAZOLE 40 MG TABLET PO SCH (13:01)
[2017-11-22] MEDS: ASPIRIN EC 81 MG TABLET PO SCH (13:02)
[2017-11-22] MEDS: SPIRONOLACTONE 25 MG TABLET PO SCH (13:02)
[2017-11-22] MEDS: CARVEDILOL 6.25 MG TABLET PO SCH ×2 (13:02→23:28)
[2017-11-22] MEDS: guaiFENesin/DM ER 600-30 MG TABLET PO SCH ×2 (13:02→21:03)
[2017-11-22] MEDS: LISINOPRIL 5 MG TABLET PO SCH ×2 (13:02→23:28)
[2017-11-22] MEDS: predniSONE 20 MG TABLET PO SCH (13:02)
[2017-11-22] MEDS: CLOPIDOGREL 75 MG TABLET PO SCH (13:02)
[2017-11-22] MEDS: ENOXAPARIN 40 MG/0.4 ML SYRINGE SUBCUT SCH ×2 (13:04→13:07)
[2017-11-22] MEDS: cefTRIAXone 1,000 MG in SYRINGE 1 EACH IV SCH (16:38)
[2017-11-22] MEDS: AZITHROMYCIN INJ 500 MG in SODIUM CHLORIDE 0.9% 250 ML IV SCH (17:31)
[2017-11-22] MEDS: SIMVASTATIN 20 MG TABLET PO SCH (21:02)
[2017-11-23] MEDS: ALBUTEROL/IPRATROPIUM 3 ML NEB RESP TX SCH ×4 (00:20→21:29)
[2017-11-23 05:46] LABS: Basophils # 0.1 10*3/uL (0.0-0.2); Basophils % 0.2 % (0.0-0.8); Hematocrit 40.8 VOL% (42.0-52.0); Hemoglobin 14.1 GM/DL (14.0-18.0); Immature Granulocytes % 0.7 %; Immature Granulocytes Absolute 0.17 #; Lymphocytes # 1.9 10*3/uL (1.4-4.0); Mean Corpuscular HGB Conc 34.6 GM/DL (32-36); Mean Corpuscular Hemoglobin 31 PG (27-34); Mean Corpuscular Volume 90.5 FL (87-102); Mean Platelet Volume 10.9 FL (9.6-12.0); Monocytes # 0.9 10*3/uL (0.11-0.8); Monocytes % 3.6 % (1.7-12.7); Neutrophils # 20.9 10*3/uL (1.4-7.4); Neutrophils % 87.5 % (38.7-73.9); Platelet Count 296 T/CUMM (130-400); Red Blood Count 4.51 MC/CUMM (3.8-5.5); Red Cell Distribution Width 13.5 % (9.3-17.3); White Blood Count 23.8 T/CUMM (4-12)
[2017-11-23 06:04] LABS: Calcium 7.6 MG/DL (8.5-10.1); Osmolality,Calculated 281.8 MOS/KG (273-304); Potassium 3.8 MMOL/L (3.5-5.1)
[2017-11-23 06:23] LABS: Band Neutrophils 6 % (0-10); Hypochromasia 1+; Lymphocytes 8 % (20-55); Microcytosis Slight; Segmented Neutrophils 83 % (50-85); Total Cells Counted 100
[2017-11-23 06:24] LABS: Platelet Estimate Normal
[2017-11-23] MEDS: FUROSEMIDE 40 MG/4 ML VIAL IV SCH ×2 (09:11→15:54)
[2017-11-23] MEDS: guaiFENesin/DM ER 600-30 MG TABLET PO SCH ×2 (09:35→21:29)
[2017-11-23] MEDS: CARVEDILOL 6.25 MG TABLET PO SCH ×2 (09:35→21:29)
[2017-11-23] MEDS: ASPIRIN EC 81 MG TABLET PO SCH (09:36)
[2017-11-23] MEDS: LISINOPRIL 5 MG TABLET PO SCH ×2 (09:36→21:29)
[2017-11-23] MEDS: SPIRONOLACTONE 25 MG TABLET PO SCH (09:36)
[2017-11-23] MEDS: predniSONE 20 MG TABLET PO SCH (09:36)
[2017-11-23] MEDS: CLOPIDOGREL 75 MG TABLET PO SCH (09:36)
[2017-11-23] MEDS: ENOXAPARIN 40 MG/0.4 ML SYRINGE SUBCUT SCH (09:36)
[2017-11-23] MEDS: PANTOPRAZOLE 40 MG TABLET PO SCH (09:37)
[2017-11-23] MEDS: cefTRIAXone 1,000 MG in SYRINGE 1 EACH IV SCH (16:00)
[2017-11-23] MEDS: AZITHROMYCIN INJ 500 MG in SODIUM CHLORIDE 0.9% 250 ML IV SCH (16:44)
[2017-11-23] MEDS: SIMVASTATIN 20 MG TABLET PO SCH (21:29)
[2017-11-24] MEDS: ALBUTEROL/IPRATROPIUM 3 ML NEB RESP TX SCH ×4 (01:54→21:07)
[2017-11-24 05:30] LABS: Hematocrit 39.5 VOL% (42.0-52.0); Hemoglobin 13.5 GM/DL (14.0-18.0); Red Blood Count 4.36 MC/CUMM (3.8-5.5)
[2017-11-24 05:31] LABS: Basophils % 0.3 % (0.0-0.8); Eosinophils # 0.1 10*3/uL (0.0-0.87); Eosinophils % 0.3 % (0.00-10.9); Immature Granulocytes % 1.8 %; Immature Granulocytes Absolute 0.27 #; Lymphocytes # 2.2 10*3/uL (1.4-4.0); Lymphocytes % 14.4 % (21.2-54.2); Mean Corpuscular HGB Conc 34.2 GM/DL (32-36); Mean Corpuscular Hemoglobin 31 PG (27-34); Mean Corpuscular Volume 90.6 FL (87-102); Mean Platelet Volume 10.8 FL (9.6-12.0); Monocytes # 0.6 10*3/uL (0.11-0.8); Monocytes % 4.2 % (1.7-12.7); Neutrophils # 11.8 10*3/uL (1.4-7.4); Platelet Count 307 T/CUMM (130-400); Red Cell Distribution Width 13.5 % (9.3-17.3)
[2017-11-24 06:04] LABS: Osmolality,Calculated 281.7 MOS/KG (273-304); Potassium 3.9 MMOL/L (3.5-5.1)
[2017-11-24] MEDS: ASPIRIN EC 81 MG TABLET PO SCH (08:39)
[2017-11-24] MEDS: LISINOPRIL 5 MG TABLET PO SCH (08:39)
[2017-11-24] MEDS: CLOPIDOGREL 75 MG TABLET PO SCH (08:39)
[2017-11-24] MEDS: PANTOPRAZOLE 40 MG TABLET PO SCH (08:39)
[2017-11-24] MEDS: SPIRONOLACTONE 25 MG TABLET PO SCH (08:39)
[2017-11-24] MEDS: predniSONE 20 MG TABLET PO SCH (08:39)
[2017-11-24] MEDS: CARVEDILOL 6.25 MG TABLET PO SCH ×2 (08:39→21:58)
[2017-11-24] MEDS: ENOXAPARIN 40 MG/0.4 ML SYRINGE SUBCUT SCH (08:40)
[2017-11-24] MEDS: FUROSEMIDE 40 MG/4 ML VIAL IV SCH ×2 (09:59→16:05)
[2017-11-24] MEDS: guaiFENesin/DM ER 600-30 MG TABLET PO SCH ×2 (10:38→21:58)
[2017-11-24] MEDS: cefTRIAXone 1,000 MG in SYRINGE 1 EACH IV SCH (16:07)
[2017-11-24] MEDS: AZITHROMYCIN INJ 500 MG in SODIUM CHLORIDE 0.9% 250 ML IV SCH (16:20)
[2017-11-24] MEDS: SIMVASTATIN 20 MG TABLET PO SCH (21:58)
[2017-11-24] MEDS: LISINOPRIL 2.5 MG TABLET PO SCH (22:26)
[2017-11-25] MEDS: ALBUTEROL/IPRATROPIUM 3 ML NEB RESP TX SCH ×4 (01:36→14:44)
[2017-11-25] MEDS ORDERED: CETIRIZINE 10 MG TABLET PO SCH (09:00)
[2017-11-25] MEDS ORDERED: PSEUDOEPHEDRINE 30 MG TABLET PO SCH (09:00)
[2017-11-25] MEDS: CLOPIDOGREL 75 MG TABLET PO SCH (09:26)
[2017-11-25] MEDS: CARVEDILOL 6.25 MG TABLET PO SCH (09:26)
[2017-11-25] MEDS: SPIRONOLACTONE 25 MG TABLET PO SCH (09:26)
[2017-11-25] MEDS: ASPIRIN EC 81 MG TABLET PO SCH (09:26)
[2017-11-25] MEDS: predniSONE 20 MG TABLET PO SCH (09:26)
[2017-11-25] MEDS: guaiFENesin/DM ER 600-30 MG TABLET PO SCH (09:26)
[2017-11-25] MEDS: ENOXAPARIN 40 MG/0.4 ML SYRINGE SUBCUT SCH (09:27)
[2017-11-25] MEDS: LISINOPRIL 2.5 MG TABLET PO SCH (09:27)
[2017-11-25] MEDS: FUROSEMIDE 40 MG/4 ML VIAL IV SCH (09:27)
[2017-11-25] MEDS: PANTOPRAZOLE 40 MG TABLET PO SCH (09:27)
[2017-11-25 17:27] VITALS: BP 106/70
== END 2017-11-25 18:51 | disposition home or self-care (01) | DRG 190 ==
LOC: N.TELEN 04:37 → SUATTDRO 04:37
PROVIDERS: ADMIT Hospitalist